=== PATIENT | female | born 1945 | race Two or more races ===

== ENCOUNTER 2024-02-22 10:05 | Day surgery (SDC) | payer MEDICARE, BC, SELFPAY ==
--- NOTE | 2024-02-16 13:35 | EKG_ITS ---
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
[2024-02-16 15:01] LABS: Collection Type, Urine Clean Catch
[2024-02-16 15:15] LABS: Basophils # (Auto) 0.1 Thou/mm3 (0.0-0.2); Basophils % (Auto) 1 % (0-2.5); Eosinophils # (Auto) 0.2 Thou/mm3 (0.0-0.5); Eosinophils % (Auto) 3 % (0-10); Hematocrit 41.1 % (36.0-46.0); Hemoglobin 13.5 g/dL (12.0-16.0); Immature Granulocytes % (Auto) 1 % (0-0); Immature Granulocytes Auto 0.03 Thou/mm3 (0.00-0.00); Lymphocytes # (Auto) 2.5 Thou/mm3 (1.0-4.8); Lymphocytes % (Auto) 39 % (10-50); Mean Corpuscular HGB Conc 32.8 g/dl (31.0-37.0); Mean Corpuscular Hemoglobin 29.9 pg (25.0-35.0); Mean Corpuscular Volume 91 fL (80-100); Monocytes # (Auto) 0.5 Thou/mm3 (0.0-0.8); Monocytes % (Auto) 8 % (0-12); Neutrophils # (Auto) 3.1 Thou/mm3 (1.8-7.7); Neutrophils % (Auto) 49 % (37-80); Nucleated Red Blood Cell % 0 /100 WBC (0); Platelet Count 291 Thou/mm3 (140-440); RDW Standard Deviation 42.3 fL (36.4-46.3); Red Blood Count 4.52 Miln/mm3 (4.00-5.20); White Blood Count 6.4 Thou/mm3 (3.6-11.0)
[2024-02-16 15:18] LABS: Bilirubin,Urine Negative (Negative); Blood,Urine 1+ (Negative); Clarity,Urine Clear (Clear/Hazy); Color,Urine Lt-Yellow (Lt Yel-Yel); Glucose, Urine Negative (Negative); Ketones,Urine Negative (Negative); Leukocyte Esterase,Urine Positive (Negative); Nitrite,Urine Negative (Negative); PH,Urine 6.5 (5.0-7.0); Protein,Urine Negative (Neg - Trace); RBC,Urine 9 /hpf (0-3); Specific Gravity,Urine 1.017 (1.001-1.035); Squamous Epithelial Cell,Urine 1 /hpf (0-5); Urobilinogen,Urine Negative mg/dL (0.0-1.0); WBC,Urine 6 /hpf (0-5)
[2024-02-16 15:22] LABS: Partial Thromboplastin Time 27.9 Seconds (22.0-36.0); Prothrombin Time 10.6 Seconds (9.0-12.2)
[2024-02-16 15:42] LABS: Alanine Aminotransferase 15 U/L (10-49); Albumin, Serum 4.7 gm/dL (3.4-4.8); Alkaline Phosphatase 133 U/L (46-116); Anion Gap 6 (7-16); Aspartate Amino Transferase 21 U/L (0-34); BUN/Creatinine Ratio 17 Ratio (12-20); Bilirubin,Total 0.4 mg/dL (0.3-1.2); Blood Urea Nitrogen 12 mg/dL (9-23); Calcium 9.3 mg/dL (8.3-10.6); Calcium (Corrected) 9.3 mg/dL (8.5-10.1); Carbon Dioxide 26.1 mMol/L (20.0-31.0); Chloride 106 mMol/L (98-107); Creatinine (Component) 0.7 mg/dL (0.6-1.3); Globulin 2.4 gm/dL (2.3-3.5); Glucose 95 mg/dL (74-106); Osmolality,Calculated 275 (275-295); Potassium 4.3 mMol/L (3.4-5.1); Sodium 138 mMol/L (136-145); Total Protein 7.1 gm/dL (5.7-8.2); eGFR > 60 See Note
[2024-02-21 14:04] VITALS: BMI 27.9
--- NOTE | 2024-02-21 22:04 | PD.SURHP ---
HPI Date of Admission 02/22/2024 Chief Complaint Chief Complaint: Upper abdominal pain. HPI This 78 years old female gets postprandial upper abdominal pain she also has crampy pain in abdomen. She is brought here for Upper GI endoscopy possible biopsy. Past Medical History Past Medical History NEUROLOGIC: Negative Neurological Disorders or Seizures CARDIAC: Positive Cardiac Disorders and Hypertension; Negative Congestive Heart Failure RESPIRATORY: Negative Respiratory Disorders or Chronic Obstructive Pulmonary Disease (COPD) GASTROINTESTINAL: Negative Gastrointestinal Disorders or Gastroesophageal Reflux Disease GENITOURINARY: Negative Genitourinary Disorders or Renal Disease REPRODUCTIVE: Positive Previous Pregnancies; Negative Breast Cancer MUSCULOSKELETAL: Positive Musculoskeletal Disorders, Arthritis and Carpal Tunnel Syndrome (elizabeth) ENT: Positive History of ENT Problems and Cataracts; Negative Glaucoma ENDOCRINE: Negative Endocrine Disorders, Diabetes Mellitus Type 1 or Diabetes Mellitus Type 2 HEMATOLOGIC: Negative Blood Disorders OTHER HISTORY: Positive Hospitalization (surgery), Chicken Pox, Measles and Mumps; Negative Autoimmune Disease, Shingles, Falls, Blood Transfusions, Anesthesia Reactions, Clostridium Difficile, Cancer or Breast Cancer Family History FAMILY HISTORY: Negative Family Psychiatric Problems, Family Respiratory Disorders, Family Cardiac Disorders, Family Gastrointestinal Problems, Family Cancer, Family Surgery or Family Anesthesia Reaction Surgical History SURGICAL: Positive Knee Sx, Arthroscopy and Hysterectomy Social History SMOKING STATUS: Never smoker Travel History EBOLA RISK: No Meds Home Medications and Allergies Home Medications ?Medication ?Instructions ?Recorded ?Confirmed ?Type lisinopril 2.5 mg tablet 2.5 mg PO QDAY 10/25/17 02/21/24 History ibuprofen 600 mg tablet 600 mg PO Q8H PRN Pain 02/21/24 02/21/24 History Allergies Allergy/AdvReac Type Severity Reaction Status Date / Time meperidine [From Demerol] Allergy Mild Dizziness Verified 02/21/24 14:03 codeine Allergy Unknown Nausea Verified 02/21/24 14:03 hydrocodone Allergy Unknown Nausea Verified 02/21/24 14:03 soap Allergy itching Verified 02/21/24 14:03 Exam Constitutional Constitutional: no acute distress Routine HEENT Exam Head: Present normocephalic Eye: Present EOMI and PERRL ENT: Present mucous membranes moist Routine Neck Exam Neck: Present supple and trachea midline Routine Chest/Breast/Axilla Exam Chest wall: Absent tenderness or mass Routine Respiratory Exam Respiratory: Present chest non-tender, lungs clear, normal breath sounds and no resp distress; Absent respiratory distress Routine Cardiovascular Exam Cardiovascular: Present RRR Routine Abdominal Exam Abdominal: Present soft and normoactive bowel sounds Routine Extremities Exam Extremities: Present full ROM Routine Skin Exam Skin: Present intact, dry and warm Routine Neurological Exam Neurological: Present alert, oriented X3 and CN II-XII intact Routine Psychiatric Exam Psychiatric: Present normal affect and normal thought process Assessment & Plan Problem List (1) Upper abdominal pain: Status: Acute Plan Upper GI endoscopy possible biopsy. Quality Measures Quality Measures none Advance care planning discussed with:: patient
[2024-02-22] VITALS (10 sets, daily range): BP systolic 115–183; BP diastolic 64–93; PULSE 72–102; RESP 13–21; TEMP 36.3–36.5; O2SAT 95–99; BMI 27.9
--- NOTE | 2024-02-22 13:47 | SUR.PHASEII ---
1347: Pt. AAOx4, vitals stable, breathing unlabored, no complaint of pain or nausea, no dressing in place, no active bleed noted, report received from Kirsty GREER.
--- NOTE | 2024-02-22 14:20 | SUR.PHASEII ---
1420: Pt. AAOx4, vitals stable, breathing unlabored, no complaint of pain or nausea, no dressing in place, no active bleed noted, pt. tolerated sips of water well, pt. ambulated to wheelchair with steady gait and no assist, no complications. Gave discharge instructions to the pt. and her ride, both verbalized understanding and had no further questions. Pt. left with all personal belongings.
== END 2024-02-22 14:20 | disposition home or self-care (01) ==
PROVIDERS: PCP Family Medicine; Referring Provider Specialist; Visit Provider Specialist
PROC: (CPT 43239; principal; 2024-02-22 11:15)
DX: K21.00 Gastro-esophageal reflux disease with esophagitis, without bleeding (principal); K44.9 Diaphragmatic hernia without obstruction or gangrene; I10 Essential (primary) hypertension; M19.90 Unspecified osteoarthritis, unspecified site; Z90.710 Acquired absence of both cervix and uterus; Z01.810 Encounter for preprocedural cardiovascular examination
CPT/HCPCS: 43235; 36415; 80053; 81001; 85025; 85610; 85730; 93005; J1200; J2250; J3010; A9270

== ENCOUNTER → 2024-03-20 | Outpatient (CLI) | payer MEDICARE, BC, SELFPAY ==
[2024-03-20 10:22] LABS: Collection Type, Urine Clean Catch
[2024-03-20 14:03] LABS: Bilirubin,Urine Negative (Negative); Blood,Urine 1+ (Negative); Clarity,Urine Clear (Clear/Hazy); Color,Urine Lt-Yellow (Lt Yel-Yel); Glucose, Urine Negative (Negative); Ketones,Urine Negative (Negative); Leukocyte Esterase,Urine Positive (Negative); Nitrite,Urine Negative (Negative); PH,Urine 5.5 (5.0-7.0); Protein,Urine Negative (Neg - Trace); RBC,Urine 6 /hpf (0-3); Squamous Epithelial Cell,Urine 1 /hpf (0-5); Urobilinogen,Urine Negative mg/dL (0.0-1.0); WBC,Urine 5 /hpf (0-5)
== END | disposition home or self-care (01) ==
LOC: SLDO 10:13
PROVIDERS: Referring Provider Family Medicine; Visit Provider Family Medicine
DX: N39.0 Urinary tract infection, site not specified (principal)
CPT/HCPCS: 81001; 87086

== ENCOUNTER → 2024-04-11 | Outpatient (CLI) | payer MEDICARE, BC, SELFPAY ==
--- NOTE | 2024-04-11 10:00 | XR_ITS ---
Examination: MRI lumbar spine without contrast Date and time of exam: April 11, 2024 1159 hours INDICATIONS: Low back pain beginning 4 months ago Technique: Multiple MRI axial and sagittal sections lumbar spine. Sagittal T2-weighted images, TR 3500, TE 118 T1 weighted transverse sections, TR 688 T8.5, T2-weighted sagittal sections T1 weighted sagittal sections TR 621, TE 30 T2 axial sections, TR 4, 190, TE 84. Findings: Minimal anterolisthesis L4 on L5, 2 mm Chronic compression L3, mild Adequate marrow signal lumbar vertebral bodies Mild lumbar spondylosis No spondylolisthesis Diffuse lumbar disc desiccation L5-S1 2 mm central lumbar disc bulge L4-L5 4 mm central lumbar disc bulge L3-L4 no disc protrusion L2-L3 no disc protrusion L1-L2 no disc protrusion IMPRESSION: L5-S1 2 mm central lumbar disc bulge L4-L5 4 mm central lumbar disc bulge
== END | disposition home or self-care (01) ==
PROVIDERS: Referring Provider Family Medicine; Visit Provider Family Medicine
DX: M51.369 Other intervertebral disc degeneration, lumbar region without mention of lumbar back pain or lower extremity pain (principal); M51.379 Other intervertebral disc degeneration, lumbosacral region without mention of lumbar back pain or lower extremity pain
CPT/HCPCS: 72148

== ENCOUNTER → 2024-04-21 | Outpatient (CLI) | payer MEDICARE, BC, SELFPAY ==
[2024-04-21 11:15] LABS: Misc Send Out* See Sep Rpt
[2024-04-21 12:10] LABS: Folate > 24.00 ng/mL (>5.38); Vitamin B12 658 pg/mL (211-911)
[2024-04-21 12:23] LABS: Iron 77 mcg/dL (50-170)
[2024-04-21 13:45] LABS: Total Iron Binding Capacity 337 mcg/dL (250-425)
[2024-04-27 06:59] LABS: Vitamin B6, Plasma* 11.1 ng/mL (2.1-21.7)
[2024-04-28 06:40] LABS: Zinc, Plasma* 64 mcg/dL (60-130)
== END | disposition home or self-care (01) ==
LOC: COPL 10:41
PROVIDERS: PCP Family Medicine; Referring Provider Nurse Practitioner Family; Visit Provider Nurse Practitioner Family
DX: K14.0 Glossitis (principal)
CPT/HCPCS: 36415; 82607; 82746; 83540; 83550; 84207; 84252; 84446; 84591; 84630

== ENCOUNTER → 2024-04-29 | Outpatient (CLI) | payer MEDICARE, BC, SELFPAY ==
--- NOTE | 2024-04-29 12:00 | XR_ITS ---
Examination: MRI left hip without intravenous contrast Date and time of exam: April 29 2024 1204 hrs. Indications: Lower back pain radiating to the left hip 4 months Technique: Multiple MRI images of the left hip have been obtained T1 weighted coronal sections, TR 500, TE 12 Proton density coronal fat saturated images, TR 3000, TE 71 T2-weighted coronal images, 5850, TE 104 T1-weighted axial images, TR 521, TE 12 T2-weighted axial fat suppressed images, TR 5730, TE 103. Findings: Mild right mild to moderate left hip effusions Fluid in the greater trochanteric bursa left hip No left hip occult fracture bone contusion or marrow edema No avascular necrosis Adequate marrow signal right hip bones of the pelvis Small [id number] high-resolution images of the left hip demonstrate small left hip superior labral tears, coronal image 16 Impression: Asymmetric more prominent left hip effusion, consider fluoroscopically guided left hip aspiration to exclude septic arthritis Greater trochanteric bursitis left hip Small left hip superior labral tear
--- NOTE | 2024-04-29 12:00 | XR_ITS ---
Examination: MRI right hip without intravenous contrast. Date and time of exam: May 09, 2024 1148 hrs. Indications: Back pain radiating to the hips 4 months Technique: Multiple MRI images of the right hip have been obtained T1 weighted coronal sections, TR 500, TE 12 Proton density coronal fat saturated images, TR 3000, TE 71 T2-weighted coronal images, 5850, TE 104 T1-weighted axial images, TR 521, TE 12 T2-weighted axial fat suppressed images, TR 5730, TE 103. Findings: No right hip marrow edema or occult fracture bone contusion or avascular necrosis Small right hip effusion Small [id number] high-resolution images do demonstrate right hip superior labral tears Impression: Small right hip effusion, clinical correlation advised No occult fracture bone contusion marrow edema or avascular necrosis right hip Right hip superior labral tears
== END | disposition home or self-care (01) ==
LOC: SMRI 10:15
PROVIDERS: Referring Provider Family Medicine; Visit Provider Family Medicine
DX: M25.452 Effusion, left hip (principal); M25.451 Effusion, right hip; M70.62 Trochanteric bursitis, left hip; S73.101A Unspecified sprain of right hip, initial encounter; S43.432A Superior glenoid labrum lesion of left shoulder, initial encounter; X58.XXXA Exposure to other specified factors, initial encounter
CPT/HCPCS: 73721

== ENCOUNTER → 2024-08-15 | Outpatient (CLI) | payer MEDICARE, BC, SELFPAY ==
[2024-08-15 13:42] LABS: Basophils % (Auto) 1 % (0-2.5); Eosinophils # (Auto) 0.2 Thou/mm3 (0.0-0.5); Eosinophils % (Auto) 4 % (0-10); Hematocrit 38.3 % (36.0-46.0); Hemoglobin 12.5 g/dL (12.0-16.0); Immature Granulocytes % (Auto) 0 % (0-0); Immature Granulocytes Auto 0.03 Thou/mm3 (0.00-0.00); Lymphocytes # (Auto) 2.3 Thou/mm3 (1.0-4.8); Lymphocytes % (Auto) 33 % (10-50); Mean Corpuscular HGB Conc 32.6 g/dl (31.0-37.0); Mean Corpuscular Hemoglobin 30.3 pg (25.0-35.0); Mean Corpuscular Volume 93 fL (80-100); Monocytes # (Auto) 0.5 Thou/mm3 (0.0-0.8); Monocytes % (Auto) 7 % (0-12); Neutrophils # (Auto) 3.7 Thou/mm3 (1.8-7.7); Neutrophils % (Auto) 55 % (37-80); Nucleated Red Blood Cell % 0 /100 WBC (0); Platelet Count 240 Thou/mm3 (140-440); RDW Standard Deviation 43.8 fL (36.4-46.3); Red Blood Count 4.12 Miln/mm3 (4.00-5.20); White Blood Count 6.8 Thou/mm3 (3.6-11.0)
[2024-08-15 15:24] LABS: Albumin, Serum 4.5 gm/dL (3.4-4.8); Anion Gap 10 (7-16); BUN/Creatinine Ratio 23 Ratio (12-20); Blood Urea Nitrogen 16 mg/dL (9-23); Calcium 8.7 mg/dL (8.3-10.6); Calcium (Corrected) 8.7 mg/dL (8.5-10.1); Carbon Dioxide 25.7 mMol/L (20.0-31.0); Chloride 109 mMol/L (98-107); Creatinine (Component) 0.7 mg/dL (0.6-1.3); Glucose 96 mg/dL (74-106); Osmolality,Calculated 289 (275-295); Phosphorous 3.3 mg/dL (2.4-5.1); Sodium 145 mMol/L (136-145); eGFR > 60 See Note
== END | disposition home or self-care (01) ==
LOC: COPL 12:34
PROVIDERS: PCP Family Medicine; Referring Provider Family Medicine; Visit Provider Family Medicine
DX: D69.6 Thrombocytopenia, unspecified (principal)
CPT/HCPCS: 36415; 80069; 85025

== ENCOUNTER 2024-08-25 16:14 | Emergency (ER) | payer MEDICARE, BC, SELFPAY ==
--- NOTE | 2024-08-25 16:36 | PC.NURSE ---
PT CAME UP TO THIS RN AND SAID SHE DOES NOT WANT TO WAIT ANY LONGER, AND ASKED IF IT IS BUSY AT NIGHT? AND SHE IS GOING TO GO HOME AND COME BACK IF SHE NEEDS TO. THIS RN EXPLAINED, THE PROVIDER NEEDS TO ASSESS HER, SHE SAID NO SHE IS NOT WAITING.
--- NOTE | 2024-08-25 16:54 | PC.NURSE ---
called for pt from lobby/outside, no [email or web address]@ [phone]
--- NOTE | 2024-08-25 17:27 | PC.NURSE ---
CALLED FOR PT FROM LOBBY/OUTSIDE, NO [email or web address]@[phone]
== END 2024-08-25 17:48 | disposition left against medical advice (07) ==
PROVIDERS: Emergency Provider Emergency Medicine
DX: Z53.21 Procedure and treatment not carried out due to patient leaving prior to being seen by health care provider (principal)

== ENCOUNTER 2025-01-01 19:14 | Emergency (ER) | payer MEDICARE, BC, SELFPAY ==
[2025-01-01 19:16] VITALS: BMI 26.5
== END 2025-01-01 20:15 | disposition left against medical advice (07) ==
LOC: SERX 20:15
PROVIDERS: Emergency Provider Emergency Medicine
DX: Z53.21 Procedure and treatment not carried out due to patient leaving prior to being seen by health care provider (principal)
CPT/HCPCS: 99281

== ENCOUNTER 2025-01-08 14:48 | Inpatient (IN) | payer MEDICARE, BC, SELFPAY ==
[2025-01-08] VITALS (14 sets, daily range): BP systolic 114–173; BP diastolic 78–117; PULSE 104–118; RESP 16–98; TEMP 36.1–37.6; O2SAT 92–97; BMI 25.0; BMI 24.6
--- NOTE | 2025-01-08 14:49 | XR_ITS ---
EXAMINATION: AP chest single view TECHNIQUE: Portable upright AP chest single view Date and time: January 08, 2025, 1554 hours INDICATIONS: Stroke alert today FINDINGS: Normal heart size. No aspiration pneumonia. Mild ectasia thoracic aorta. Prominent osteopenia. IMPRESSION: Negative for aspiration pneumonia.
--- NOTE | 2025-01-08 14:49 | XR_ITS ---
Examination: CTA carotids with intravenous contrast CTA brain, head with intravenous contrast. 2-D sagittal, coronal reconstructions. 3-D reconstructions. Exam date and time: January 08, 2025, 1500 hours INDICATIONS: Stroke alert today, onside focal neurologic deficit including slurred speech CTDI: vol (mGy) 15.2 DLP: (mGycm) 368 Technique: Multiple CTA axial brain, head carotid images post intravenous contrast injection 75 cc, Isovue-370. 2-D sagittal, coronal reconstructions. 3-D reconstructions, 3-D post processing including vascular maximum intensity projection images. Low dose protocols were performed. One or more of the following dose reduction techniques were used; automated exposure control, adjustment of the mA and/or KV according to patient size, use of iterative reconstruction technique. Findings: 30 to 50% stenosis right carotid bifurcation origin right internal carotid artery 70% stenosis left carotid bifurcation origin left internal carotid artery Dominant right vertebral artery in the neck with no critical stenoses Intracranial vertebral arteries basilar artery posterior cerebral branches do fill Moderate calcification juxtasellar portions of both internal carotid arteries No large vessel occlusions involving M1 segments middle cerebral arteries middle cerebral artery trifurcation vessels or anterior cerebral arteries IMPRESSION: 30 to 50% stenosis right carotid bifurcation origin right internal carotid artery 70% stenosis left carotid bifurcation origin left internal carotid artery No cerebral large vessel arterial occlusions or thrombus
--- NOTE | 2025-01-08 14:49 | XR_ITS ---
Examination: CT brain head without contrast. 2-D sagittal coronal reconstructions Date and time of exam: January 08, 2025, 1425 hours INDICATIONS: Stroke alert, onset slurred speech today CTDI: vol (mGy): 93.5 DLP: (mGycm): 1790 Technique: Multiple CT axial sections of the brain have been obtained, 5 mm slice thickness. Contrast has not been administered. 2-D sagittal, coronal reconstructions have been obtained Low dose protocols were performed. One or more of the following dose reduction techniques were used; automated exposure control, adjustment of the mA and/or KV according to patient size, use of iterative reconstruction technique. Findings: Ventricles are not enlarged No mass effect upon the ventricular system No acute hemorrhage either intra or extra-axial Fourth ventricle midline Cranial vault is intact Old fracture medial wall left orbit IMPRESSION: No acute hemorrhage mass effect or midline shift
--- NOTE | 2025-01-08 14:49 | EKG_ITS ---
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
[2025-01-08 15:09] LABS: Basophils # (Auto) 0.0 Thou/mm3 (0.0-0.2); Basophils % (Auto) 1 % (0-2.5); Eosinophils # (Auto) 0.1 Thou/mm3 (0.0-0.5); Eosinophils % (Auto) 2 % (0-10); Hematocrit 42.4 % (36.0-46.0); Hemoglobin 13.8 g/dL (12.0-16.0); Immature Granulocytes Auto 0.03 Thou/mm3 (0.00-0.00); Lymphocytes # (Auto) 1.4 Thou/mm3 (1.0-4.8); Lymphocytes % (Auto) 27 % (10-50); Mean Corpuscular HGB Conc 32.5 g/dl (31.0-37.0); Mean Corpuscular Hemoglobin 28.2 pg (25.0-35.0); Mean Corpuscular Volume 87 fL (80-100); Monocytes # (Auto) 0.5 Thou/mm3 (0.0-0.8); Monocytes % (Auto) 9 % (0-12); Neutrophils # (Auto) 3.3 Thou/mm3 (1.8-7.7); Neutrophils % (Auto) 62 % (37-80); Nucleated Red Blood Cell # 0.00 Thou/mm3 (0.00-0.00); Nucleated Red Blood Cell % 0 /100 WBC (0); Platelet Count 227 Thou/mm3 (140-440); RDW Standard Deviation 40.6 fL (36.4-46.3); Red Blood Count 4.89 Miln/mm3 (4.00-5.20); White Blood Count 5.3 Thou/mm3 (3.6-11.0)
--- NOTE | 2025-01-08 15:15 | PC.NURSE ---
Patient back from CT in er room 1, Teleneurologists, Dr. Gomes on telemonitor and states patient not a cadidate for Tnkase, son at bedside states patient LKW 0900 this am per sonMars patient having trouble getting her words out when they are asking questions, also patient was unable to walk, patient denies pain, answering questions appropriately, however, slow to respond, patient alert to person and place not time or date, patient confused with some garbles speech, skin is warm dry and pink, new orders recieved.
--- NOTE | 2025-01-08 15:20 | EDNOTE_ITS ---
Altered Mental Status RME/HPI General Chief Complaint: Neuro Symptoms/Deficit Stated Complaint: STROKE Time Seen by Provider: 01/08/25 14:48 Arrival date/time: 01/08/25 14:48 RME / HPI RME / HPI narrative: 79 year old female with history of hypertension presents to the ED BIBA from home for evaluation of altered mental status today. Per medics, family on scene reported she had woken up at 09:00 AM today at her usual state of health. States some time after waking, she began to complain of feeling dizzy and nausea. 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 The patient was not speaking appropriately and appeared confused. Per medics, on scene the patient had a G-FAST of 1 for the aphasia. Otherwise able to follow commands and strength equal in all extremities. In the ED, patient appears to be confused and unable to provide any additional history. Related Data Home Medications ?Medication ?Instructions ?Recorded ?Confirmed lisinopril 2.5 mg tablet 2.5 mg PO QDAY 10/25/1705/15 Allergies Allergy/AdvReac Type Severity Reaction Status Date / Time meperidine (From Demerol) Allergy Mild Dizziness Verified 01/08/25 15:29 codeine Allergy Unknown Nausea Verified 01/08/25 15:29 hydrocodone Allergy Unknown Nausea Verified 01/08/25 15:29 soap Allergy itching Verified 01/08/25 15:29 Review of Systems Review of Systems Systems Reviewed: All systems reviewed, normal except as documented Past Medical History Past Medical History CARDIAC: Positive Cardiac Disorders and Hypertension REPRODUCTIVE: Positive Previous Pregnancies MUSCULOSKELETAL: Positive Musculoskeletal Disorders, Arthritis and Carpal Tunnel Syndrome ENT: Positive Cataracts OTHER HISTORY: Positive Hospitalization, Chicken Pox, Measles and Mumps Surgical History SURGICAL: Positive Joint Replacement (elizabeth. knee), Arthroscopy and Hysterectomy Social History SMOKING STATUS: Never smoker ED Exam Narrative Physical exam: GENERAL APPEARANCE: awake, appears confused, well-developed, well-nourished HEENT: Normocephalic, atraumatic; pupils equal, round, reactive to light; EOMI; mucous membranes pink, moist; oropharynx clear NECK: Supple LUNGS: CTABL; no wheezes, no rales, no rhonchi HEART: Regular rate, regular rhythm; normal S1, S2; no murmurs ABDOMEN: non distended; normal BS; soft, no tenderness, no guarding, no rebound; no masses, no organomegaly, no hernia BACK: no CVA tenderness EXTREMITIES: atraumatic; no edema NEUROLOGIC: awake; appears confused; left facial droop noted SKIN: warm, dry, normal color; no rashes Course Quality Measures Suspected type of Stroke: Non Acute Last known well (date): 01/08/25 Last known well (time): 09:00 Tenecteplase given: Reason(s) TPA not given: Outside the time window not given stroke Orders Category Date Time Status Bedside Blood Glucose NOW Care 01/08/25 14:49 Active Managing Cognitive Engineer NOW Care 01/08/25 14:49 Active Continuous Pulse Oximetry NOW Care 01/08/25 14:49 Completed EKG (ED ONLY) *Do not use* NOW Care 01/08/25 14:49 Completed In and Out Catheter NEEDED Care 01/08/25 14:49 Active Insert IV NOW Care 01/08/25 14:49 Active NIH Stroke Scale now Care 01/08/25 14:49 Active NPO NOW Care 01/08/25 14:49 Active Nurse Swallow Screen x1 Care 01/08/25 14:49 Active Consult to Neurology / Tele-Neurology Routine Cons 01/08/25 14:[address] angio stroke protocol Stat Exams 01/08/25 14:[address] stroke protocol Stat Exams 01/08/25 14:49 Completed EKG (ED Only) Stat Exams 01/08/25 14:49 Draft XR chest 1V portable Stat Exams 01/08/25 14:49 Completed B-Type Natriuretic Peptide Stat Lab 01/08/25 14:51 Completed CBC Stat Lab 01/08/25 14:51 Completed Comprehensive Metabolic Panel Stat Lab 01/08/25 14:51 Completed Drug Screen,Urine Stat Lab 01/08/25 16:20 Completed Magnesium Stat Lab 01/08/25 14:51 Completed Partial Thromboplastin Time Stat Lab 01/08/25 14:51 Completed Prothrombin Time with INR Stat Lab 01/08/25 14:51 Completed Troponin I Stat Lab 01/08/25 14:51 Completed Urinalysis, C/S if Indicated Stat Lab 01/08/25 16:20 Completed Aspirin [Ecotrin] Med 01/08/25 15:24 Discontinued 81 mg PO X1 ONE Sodium Chloride 0.9% 1000 ml [Ns] 1,000 ml Med 01/08/25 15:37 Discontinued IV 999 mls/hr Oxygen Delivery NOW RT 01/08/25 14:49 Active Vital Signs Vital signs: Vital Signs Temperature 99.7 F 01/08/25 15:22 Pulse Rate 114 H 01/08/25 15:22 Respiratory Rate 20 01/08/25 15:22 Blood Pressure 148/90 H 01/08/25 15:22 Pulse Oximetry (%) 92 L 01/08/25 15:22 Oxygen Delivery Method Room Air 01/08/25 15:22 Pulse ox is 92% on room air which is low. Altered Mental Status MDM Narrative MDM Narrative:: Ade Hall am scribing for and in the presence of Dr. Ko. Patient data External records reviewed:: [facility] previous records and EMS form Clinical information provided by:: EMS Social determinants that could affect healthcare access:: none Patient has the following chronic illnesses:: HTN How is presenting disease/condition affected by chronic disease/condition?: exacerbated by Evaluation data The following diagnostics were reviewed and interpreted by me:: lab results, radiology exam(s) and EKG tracing(s) (EKG @ 1526. Sinus tachycardia, rate 114, no STEMI. ) Lab and/or radiology exams considered but not ordered:: None Interpretation Summary: Ordering Physician: Vivienne Ko MD Date of Service: 01/08/25 Procedure(s): CT stroke protocol Accession Number(s): [id number] cc: Alonso Epperson MD; Vivienne Ko MD~ Examination: CT brain head without contrast. 2-D sagittal coronal reconstructions Date and time of exam: January 08, 2025, 1425 hours INDICATIONS: Stroke alert, onset slurred speech today CTDI: vol (mGy): 93.5 DLP: (mGycm): 1790 Technique: Multiple CT axial sections of the brain have been obtained, 5 mm slice thickness. Contrast has not been administered. 2-D sagittal, coronal reconstructions have been obtained Low dose protocols were performed. One or more of the following dose reduction techniques were used; automated exposure control, adjustment of the mA and/or KV according to patient size, use of iterative reconstruction technique. Findings: Ventricles are not enlarged No mass effect upon the ventricular system No acute hemorrhage either intra or extra-axial Fourth ventricle midline Cranial vault is intact Old fracture medial wall left orbit IMPRESSION: No acute hemorrhage mass effect or midline shift Dictated By: Alonso Epperson MD Signed By: <Electronically signed by Alonso Epperson MD in OV> 01/08/25 1458 Ordering Physician: Vivienne Ko MD Date of Service: 01/08/25 Procedure(s): CT angio stroke protocol Accession Number(s): [id number] cc: Alonso Epperson MD; Vivienne Ko MD~ Examination: CTA carotids with intravenous contrast CTA brain, head with intravenous contrast. 2-D sagittal, coronal reconstructions. 3-D reconstructions. Exam date and time: January 08, 2025, 1500 hours INDICATIONS: Stroke alert today, onside focal neurologic deficit including slurred speech CTDI: vol (mGy) 15.2 DLP: (mGycm) 368 Technique: Multiple CTA axial brain, head carotid images post intravenous contrast injection 75 cc, Isovue-370. 2-D sagittal, coronal reconstructions. 3-D reconstructions, 3-D post processing including vascular maximum intensity projection images. Low dose protocols were performed. One or more of the following dose reduction techniques were used; automated exposure control, adjustment of the mA and/or KV according to patient size, use of iterative reconstruction technique. Findings: 30 to 50% stenosis right carotid bifurcation origin right internal carotid artery 70% stenosis left carotid bifurcation origin left internal carotid artery Dominant right vertebral artery in the neck with no critical stenoses Intracranial vertebral arteries basilar artery posterior cerebral branches do fill Moderate calcification juxtasellar portions of both internal carotid arteries No large vessel occlusions involving M1 segments middle cerebral arteries middle cerebral artery trifurcation vessels or anterior cerebral arteries IMPRESSION: 30 to 50% stenosis right carotid bifurcation origin right internal carotid artery 70% stenosis left carotid bifurcation origin left internal carotid artery No cerebral large vessel arterial occlusions or thrombus Dictated By: Alonso Epperson MD Signed By: <Electronically signed by Alonso Epperson MD in OV> 01/08/25 1518 Medications / Prescriptions Medications or Prescriptions considered but not ordered:: None Medication administrations:: Medication Administration History Acetaminophen (Acetaminophen 325 Mg Tablet) 650 mg PO Q6H PRN PRN Reason: Fever >101.5 Stop: 02/07/25 17:08 Aspirin (Aspirin Ec 81 Mg Tabec) 81 mg PO X1 ONE Stop: 01/09/25 09:01 Docusate Sodium (Docusate Sod 100 Mg Capsule) 100 mg PO QDAY DELMY; Protocol Stop: 02/08/25 08:59 Heparin Sodium (Porcine) (Heparin Sod Inj 5000 Unit/Ml Vial) 5,000 unit SC Q12HR DELMY Stop: 01/22/25 20:59 Lactated Ringer's (Lactated Ringers) 1,000 mls @ 75 mls/hr IV .[id number] DELMY Stop: 01/09/25 19:54 Last Admin: 01/08/25 17:38 Dose: 75 mls/hr Documented By: DANIELE Ondansetron HCl (Ondansetron Inj 2 Mg/Ml Inj 2 Ml) 4 mg IVP Q6H PRN; Protocol PRN Reason: NAUSEA OR VOMITING Stop: 02/07/25 17:08 Pantoprazole Sodium (Pantoprazole Inj 40 Mg Vial) 40 mg IVP QDAY DELMY Stop: 02/07/25 17:14 Last Admin: 01/08/25 17:38 Dose: 40 mg Documented By: DANIELE Discontinued Medications Aspirin (Aspirin Ec 81 Mg Tabec) 81 mg PO X1 ONE Stop: 01/08/25 15:25 Last Admin: 01/08/25 15:33 Dose: 81 mg Documented By: DANIELE Sodium Chloride (Ns) 1,000 mls @ 999 mls/hr IV .Q1H1M ONE Stop: 01/08/25 16:37 Last Infusion: 01/08/25 17:07 Dose: Infused Documented By: Admin: 01/08/25 15:51 Dose: 999 mls/hr Documented By: DANIELE Lorazepam (Lorazepam 2 Mg/Ml Vial) 1 mg IVP X1 ONE Stop: 01/08/25 17:28 Last Admin: 01/08/25 17:37 Dose: 1 mg Documented By: DANIELE See above Consultations Consultation(s) initiated? (list below): Yes Consultation #1 (Physician, Specialty, Details): I spoke with teleneurologist Dr. Marcial. Reports patient is not a TNK candidate. Recommends starting on 81mg Aspirin and further admission for work up. Time: 15:24 Consultation #2 (Physician, Specialty, Details): I spoke with hospitalist team A for admission. Diagnosis Most likely diagnosis given after review of the tests above:: Altered mental status Generalized weakness Left facial droop Admission Indicated Admission indicated?: indicated Admission Request Was there a request for admission?: Yes Admission Attestation Admission request attestation: Discussed case with [] from Hospitalist service regarding admission. Discussed patients ED course, exam findings, labs, and radiology results. The Hospitalist [agrees,declines] to accept the patient for admission. Disposition Plan Disposition Plan: Admit Discharge Plan Plan Patient Disposition: Admit Acute Care w/in Hospital Problem List Clinical Impression: Altered mental status, Facial droop, Generalized weakness
[2025-01-08 15:24] LABS: INR 1.0 (0.9-1.3); Partial Thromboplastin Time 28.8 Seconds (22.0-36.0); Prothrombin Time 11.0 Seconds (9.0-12.2)
--- NOTE | 2025-01-08 15:25 | ESCONSULT_ITS ---
Tele Neuro Consultation Consultation Date 01/08/25 Most Recent Vital Signs Last Vital Signs Temp 99.7 F 01/08/25 15:22 Pulse 114 H 01/08/25 15:22 Resp 20 01/08/25 15:22 BP 148/90 H 01/08/25 15:22 Pulse Ox 92 L 01/08/25 15:22 O2 Del Method Room Air 01/08/25 15:22 Laboratory-Coagulation Panel PT 11.0 Seconds (9.0-12.2) 01/08/25 14:51 INR 1.0 (0.9-1.3) 01/08/25 14:51 APTT 28.8 Seconds (22.0-36.0) 01/08/25 14:51 Consultation Narrative [facility] TeleNeurology Consult Services Patient Name:???Ana Santos Date of :???1945 Identification Number:??? Date of Service:???01/08/2025 14:48:33 Diagnosis:?I63.89 - Cerebrovascular accident (CVA) due to other mechanism ([facility]) Impression: ?Mrs. Santos is a 79 year old female with an acute confusional state vs aphasia. Her NIHSS is 6. CT Head negative for bleed. Not a candidate for thrombolysis given LKW >4.5 hours. CTA without evidence of LVO. DDx includes stroke, metabolic encephalopathy, other focal cerebral disease. At this time I would recommend work up for metabolic encephalopathy per primary and MRI brain for the evaluation of ischemia. Our recommendations are outlined below. Recommendations: ? Stroke/Telemetry Floor ? Neuro Checks (Q4) ? Bedside Swallow Eval ? DVT Prophylaxis ? IV Fluids, Normal Saline ? Head of Bed 30 Degrees ? Euglycemia and Avoid Hyperthermia (PRN Acetaminophen) ? Initiate or continue Aspirin 81 MG daily ?MRI Brain. Sign Out: ? Discussed with Emergency Department Provider Advanced Imaging:CTA Head and Neck Completed. LVO:No Patient is not a candidate for MARIKA Metrics: Last Known Well: 01/08/2025 09:00:00 Dispatch Time: 01/08/2025 14:48:33 Arrival Time: 01/08/2025 14:48:00 Initial Response Time: 01/08/2025 14:56:18Symptoms: confusion. Initial patient interaction: 01/08/2025 15:05:45 NIHSS Assessment Completed: 01/08/2025 15:13:37Patient is not a candidate for Thrombolytic. Thrombolytic Medical Decision: 01/08/2025 15:13:39Patient was not deemed candidate for Thrombolytic because of following reasons: LKW outside 4.[address] Head: I personally reviewed all the CT images that were available to me and it showed: no evidence of hemorrhage. Primary Provider Notified of Diagnostic Impression and Management Plan on: 01/08/2025 15:24:19 History of Present Illness:Patient is a 79 year old Female. Patient was brought by private transportation with symptoms of confusion. The patient does not know why she is here. The patient is incoherent. This morning the son spoke to his mother. She did complain of some dizziness and not feeling right. The patient herself is unable to give any history. One week ago the patient left the stove on (unlit). ? Past Medical History: ?Hypertension Medications: No Anticoagulant use? No Antiplatelet use Reviewed EMR for current medications Allergies:? Reviewed Social History: Smoking: No Family History: There is no family history of premature cerebrovascular disease pertinent to this consultation ROS : 14 Points Review of Systems was performed and was negative except mentioned in HPI. Past Surgical History: There Is No Surgical History Contributory To Today?s Visit NIHSS may not be reliable due to: difficult to understand patient responses. Examination: BP(148/90),?Pulse(112), 1A: Level of Consciousness - Alert; keenly responsive?+ 0 1B: Ask Month and Age - Aphasic?+ 2 1C: Blink Eyes & Squeeze Hands - Performs Both Tasks?+ 0 2: Test Horizontal Extraocular Movements - Normal?+ 0 3: Test Visual Keenan - No Visual Loss?+ 0 4: Test Facial Palsy (Use Grimace if Obtunded) - Normal symmetry?+ 0 5A: Test Left Arm Motor Drift - No Drift for 10 Seconds?+ 0 5B: Test Right Arm Motor Drift - No Drift for 10 Seconds?+ 0 6A: Test Left Leg Motor Drift - No Drift for 5 Seconds?+ 0 6B: Test Right Leg Motor Drift - No Drift for 5 Seconds?+ 0 7: Test Limb Ataxia (FNF/Heel-Cohen) - No Ataxia?+ 0 8: Test Sensation - Normal; No sensory loss?+ 0 9: Test Language/Aphasia - Mute/Global Aphasia: No Usable Speech/Auditory Comprehension?+ 3 10: Test Dysarthria - Mild-Moderate Dysarthria: Slurring but can be understood?+ 1 11: Test Extinction/Inattention - No abnormality?+ 0 NIHSS Score:?6 Pre-Morbid Modified [place] Scale: 0 Points = No symptoms at all Spoke with :?Dr. Ko, ED Physician This consult was conducted in real time using interactive audio and video technology. Patient was informed of the technology being used for this visit and agreed to proceed. Patient located in hospital and provider located at home/office setting. Patient is being evaluated for possible acute neurologic impairment and high probability of imminent or life-threatening deterioration. I spent total of 35 minutes providing care to this patient, including time for face to face visit via telemedicine, review of medical records, imaging studies and discussion of findings with providers, the patient and/or family. Dr Ralph Marcial [facility] For Inpatient follow-up with [facility] physician please call [facility] at . As we are not an outpatient service for any post hospital discharge needs please contact the hospital for assistance. If you have any questions for the [facility] physicians or need to reconsult for clinical or diagnostic changes please contact us via [facility] at . Signature :?Ralph Marcial ?
[2025-01-08 15:29] LABS: Alanine Aminotransferase 44 U/L (10-49); Albumin, Serum 4.9 gm/dL (3.4-4.8); Albumin/Globulin Ratio 2.0 (1.2-2.2); Alkaline Phosphatase 107 U/L (46-116); Anion Gap 11 (7-16); Aspartate Amino Transferase 37 U/L (0-34); BUN/Creatinine Ratio 12 Ratio (12-20); Bilirubin,Total 0.4 mg/dL (0.3-1.2); Blood Urea Nitrogen 7 mg/dL (9-23); Calcium 9.2 mg/dL (8.3-10.6); Calcium (Corrected) 9.2 mg/dL (8.5-10.1); Carbon Dioxide 21.6 mMol/L (20.0-31.0); Chloride 104 mMol/L (98-107); Creatinine (Component) 0.6 mg/dL (0.6-1.3); Estimated Creatinine Clearance 60.6 mL/min (>60); Globulin 2.5 gm/dL (2.3-3.5); Glucose 96 mg/dL (74-106); Magnesium 1.9 mg/dL (1.6-2.6); Osmolality,Calculated 271 (275-295); Potassium 3.9 mMol/L (3.4-5.1); Sodium 137 mMol/L (136-145); Total Protein 7.4 gm/dL (5.7-8.2); Troponin I < 0.002 ng/mL (0.0-0.045); eGFR > 60 See Note
[2025-01-08] MEDS: ASPIRIN EC 81 MG TABEC PO (15:33)
[2025-01-08 15:38] LABS: B-Type Natriuretic Peptide 20 pg/mL (0-100)
[2025-01-08] MEDS: SODIUM CHLORIDE 0.9% 1000 ML 1,000 ML 999 ML IV (15:51)
[2025-01-08 16:25] LABS: Collection Type, Urine Catheter
--- NOTE | 2025-01-08 16:27 | PC.NURSE ---
placed nannette-wick on patient. Daughter at bedside, updated patient and daughter on plan of care.
[2025-01-08 16:49] LABS: Bilirubin,Urine Negative (Negative); Blood,Urine 2+ (Negative); Clarity,Urine Clear (Clear/Hazy); Culture Indicated,Urine Not Indicated; Glucose, Urine Negative (Negative); Ketones,Urine 2+ (Negative); Leukocyte Esterase,Urine Negative (Negative); Nitrite,Urine Negative (Negative); PH,Urine 6.5 (5.0-7.0); Protein,Urine Negative (Neg - Trace); RBC,Urine 31 /hpf (0-3); Specific Gravity,Urine 1.024 (1.001-1.035); Squamous Epithelial Cell,Urine < 1 /hpf (0-5); Urobilinogen,Urine Negative mg/dL (0.0-1.0); WBC,Urine 2 /hpf (0-5)
[2025-01-08 16:56] LABS: Amphetamine/Methamp Scrn,U Negative (Negative); Barbiturate Screen,Urine Negative (Negative); Benzodiazepines Screen,Urine Negative (Negative); Benzoylecgonine Screen, Ur Negative (Negative); Fentanyl Screen,Urine Negative (Negative); Opiate Screen,Urine Negative (Negative); THC Screen,Urine Negative (Negative)
[2025-01-08 17:01] LABS: Color,Urine Lt-Yellow (Lt Yel-Yel)
--- NOTE | 2025-01-08 17:25 | PC.NURSE ---
Patient more confused, not following commands, trying to get out of bed and pulling at her ivl's, patient's daughter at bedside to sit with her, Dr. Griffin, made aware, new orders received for ativan.
[2025-01-08] MEDS: LORazepam 2 MG/ML VIAL 1 MG IVP (17:37)
[2025-01-08] MEDS: RINGERS LACTATED 1000 ML 1,000 ML 75 ML IV (17:38)
--- NOTE | 2025-01-08 17:55 | PC.NURSE ---
Dr. Espinal at bedside and is aware of patient's mental status, speaking with son regarding plan of care.
--- NOTE | 2025-01-08 18:35 | ESHP_ITS ---
Documentation for date of: 01/08/25 Patient is a 79-year-old female with past medical history hypertension, hiatal hernia, esophageal stricture status post dilation (10/25/2017), GERD, who presented to the emergency room with chief complain of acute encephalopathy who and was admitted for stroke work up and pending MRI. Patient was seen by tele- neuro and recommended only Aspirin 81 mg. Neurology consulted in house. Sigmoid colitis noted on CT and denied history of Crohns disease or UC. Senior Resident Attestation: I have discussed the case with supervising physician and training intern physician involved in the care of patient. I personally saw and examined patient and discussed the assessment and plan with the entire medical team, including attending. I agree with assessment and plan as documented below. - The patient's plan was discussed with attending Dr. Kylie Amador MD PGY2 Internal Medicine HPI History of Present Illness Chief complaint: altered mental status History of present illness: Patient is a 79 yo female PMHx of HTN presents to emergency department for altered mental status, LNW 9:30AM 01/08. According to the daughter, patient was not feeling well after a birthday democrat last night. Patient was complaining of dizziness at 9:30AM. Her son was saying his mother was talking to him not making sense, sounded confused, and even though her children don't speak [place], Ana was talking [place] to them. Associated symtoms of dizziness the last couple days. No nausea or vomiting. Daughter says her mother was around her son with pneumonia. ED Course: Per medics, family on scene reported she had woken up at 09:00 AM today at her usual state of health. States some time after waking, she began to complain of feeling dizzy and nausea. 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 The patient was not speaking appropriately and appeared confused. Per medics, on scene the patient had a G- FAST of 1 for the aphasia. Otherwise able to follow commands and strength equal in all extremities. In the ED, patient appears to be confused and unable to provide any additional history. T 99.7, HR 114, RR 20, BP 148/90, Pulse Ox 92% on RA. Given 81mg ASA. CTA carotids and brain show 30 to 50% stenosis right carotid bifurcation origin right internal carotid artery. 70% stenosis left carotid bifurcation origin left internal carotid artery. No cerebral large vessel arterial occlusions or thrombus. Per Neuro Dr. Marcial: Mrs. Santos is a 79 year old female with an acute confusional state vs aphasia. Her NIHSS is 6. CT Head negative for bleed. Not a candidate for thrombolysis given LKW >4.5 hours. CTA without evidence of LVO. DDx includes stroke, metabolic encephalopathy, other focal cerebral disease. At this time I would recommend work up for metabolic encephalopathy per primary and MRI brain for the evaluation of ischemia. Admitted to our service for stroke workup vs acute metabolic encephalopathy Review of Systems Review of Systems ROS Unobtainable: unobtainable due to mental status Past Medical History Past Medical History CARDIAC: Positive Hypertension Family History FAMILY HISTORY: Negative Family Neurologic Problems Surgical History SURGICAL: Positive Joint Replacement Travel History EBOLA RISK: No DEVANTE SYMPTOMS: Joint Pain Exam Vital Signs Temp Pulse Resp BP Pulse Ox O2 Del Method 99.7 F 104 H 18 173/92 H 95 Room Air 01/08/25 15:22 01/08/25 17:46 01/08/25 17:46 01/08/25 17:46 01/08/25 17:46 01/08/25 17:46 Narrative Exam General: Altered and confused, speaks gibberish intermittently, and will speak venezuelan to daughter who only speaks icelandic Eye: PERRL, EOMI, normal conjunctiva, no scleral icterus HENT: Normocephalic, atraumatic, normal hearing, pink and moist mucous membranes, no oral lesions in mouth, throat shows no erythema Neck: Supple, non-tender, no JVD, no lymphadenopathy Lungs: Clear to auscultation bilaterally, non-labored respirations, symmetric chest rise, no use of accessory muscles Heart: Normal S1 and S2, no S3 or S4 appreciated. Normal rate and regular rhythm, no murmurs, rubs gallops, or edema. Peripheral pulses intact bilaterally, capillary refill brisk distally Abdomen: Soft, diffuse TTP, non-distended, normal bowel sounds. Guarding. Suprapubic tenderness. Musculoskeletal: Normal range of motion and strength. Skin: Skin is warm, dry, no rashes or lesions. Neurologic: Alert, awake and oriented x3. CN II-XII grossly intact. No focal neuro deficits. No signs of meningeal irritation noted. Psychiatric: Cooperative, appropriate mood and affect Results: Labs 01/13/25 05:39 01/12/25 05:23 Labs: Short CBC 01/08/25 Range/Units 14:51 WBC 5.3 (3.6-11.0) Thou/mm3 Hgb 13.8 (12.0-16.0) g/dL Hct 42.4 (36.0-46.0) % Plt Count 227 (140-440) Thou/mm3 BMP 01/08/25 14:51 Sodium 137 Potassium 3.9 Chloride 104 Carbon Dioxide 21.6 BUN 7 L Creatinine 0.6 Glucose 96 Calcium 9.2 Cardiac Enzymes 01/08/25 Range/Units 14:51 Troponin I < 0.002 (0.0-0.045) ng/mL Liver Function 01/08/25 Range/Units 14:51 Total Bilirubin 0.4 (0.3-1.2) mg/dL AST 37 H (0-34) U/L ALT 44 (10-49) U/L Alkaline Phosphatase 107 (46-116) U/L Albumin 4.9 H (3.4-4.8) gm/dL Urine 01/08/25 Range/Units 16:20 Urine Color Lt-Yellow (Lt Yel-Yel) Urine Clarity Clear (Clear/Hazy) Urine pH 6.5 (5.0-7.0) Ur Specific [place] 1.024 (1.001-1.035) Urine Protein Negative (Neg - Trace) Urine Glucose (UA) Negative (Negative) Quality Measures Quality Measures stroke Suspected type of Stroke: Non Acute Last known well (date): 01/08/25 Last known well (time): 09:00 Tenecteplase given: Reason(s) Tenecteplase not given: Outside the time window not given Rehab services: PT evaluation ordered and Speech Language Pathology eval ordered VTE Prophylaxis: pharmaceutical Antithrombotic by day 2:: not indicated (describe) Statin ordered: not ordered Anticoagulation ordered for A-fib or flutter (current or hx): not indicated Advance care planning discussed with:: sibling Medications Home Medications and Allergies Home Medications ?Medication ?Instructions ?Recorded ?Confirmed ?Type lisinopril 2.5 mg tablet 2.5 mg PO QDAY 10/25/1712/21 History Held on 01/13/25. Instructions: Resume on 01/19/25. Please hold Lisinopril until you follow up with your primary care provider, as you blood pressure has been normal in the hospital. Allergies Allergy/AdvReac Type Severity Reaction Status Date / Time meperidine (From Demerol) Allergy Mild Dizziness Verified 01/08/25 15:29 codeine Allergy Unknown Nausea Verified 01/08/25 15:29 hydrocodone Allergy Unknown Nausea Verified 01/08/25 15:29 soap Allergy itching Verified 01/08/25 15:29 Visit Medications Acetaminophen (Acetaminophen 325 Mg Tablet) 650 mg PO Q6H PRN PRN Reason: Fever >101.5 Stop: 02/07/25 17:08 Aspirin (Aspirin Ec 81 Mg Tabec) 81 mg PO X1 ONE Stop: 01/09/25 09:01 Docusate Sodium (Docusate Sod 100 Mg Capsule) 100 mg PO QDAY [facility]; Protocol Stop: 02/08/25 08:59 Heparin Sodium (Porcine) (Heparin Sod Inj 5000 Unit/Ml Vial) 5,000 unit SC Q12HR DELMY Stop: 01/22/25 20:59 Lactated Ringer's (Lactated Ringers) 1,000 mls @ 75 mls/hr IV .[id number] DELMY Stop: 01/09/25 19:54 Last Admin: 01/08/25 17:38 Dose: 75 mls/hr Ondansetron HCl (Ondansetron Inj 2 Mg/Ml Inj 2 Ml) 4 mg IVP Q6H PRN; Protocol PRN Reason: NAUSEA OR VOMITING Stop: 02/07/25 17:08 Pantoprazole Sodium (Pantoprazole Inj 40 Mg Vial) 40 mg IVP QDAY DELMY Stop: 02/07/25 17:14 Last Admin: 01/08/25 17:38 Dose: 40 mg Discontinued Medications Aspirin (Aspirin Ec 81 Mg Tabec) 81 mg PO X1 ONE Stop: 01/08/25 15:25 Last Admin: 01/08/25 15:33 Dose: 81 mg Sodium Chloride (Ns) 1,000 mls @ 999 mls/hr IV .Q1H1M ONE Stop: 01/08/25 16:37 Last Infusion: 01/08/25 17:07 Dose: Infused Lorazepam (Lorazepam 2 Mg/Ml Vial) 1 mg IVP X1 ONE Stop: 01/08/25 17:28 Last Admin: 01/08/25 17:37 Dose: 1 mg Assessment & Plan Plan Patient is a 79 yo female PMHx of HTN presents to emergency department for altered mental status, LNW 9:30AM 01/08 #Acute metabolic enecphalopathy #Acute Stroke, rule out NIH Score: 7 CTA Brain & Carotids: 30 to 50% stenosis right internal carotid artery. 70% stenosis left internal carotid artery. No cerebral large vessel arterial occlusions or thrombus Given ASA 81mg in ED - mIVF LR 75 mL/hr - consulted neuro appreciate recs - consulted SAMPLING EXPERT - PT eval - nurse bedside swallow eval - NC q4hrs - pending lipid panel, CMP, TSH - permissive HTN < 220 SBP, <105 DBP #Acute Metabolic Encephalopathy DDx: infectious causes vs systemic inflammation vs metabolic causes - CTM clinically - WBC normal so low likelihood of infectious etiology # Abdominal Pain # Sigmoid Colitis WBC 5.3 - mild pain 1-3 APAP 650mg q6, consider adding moderate pain reg - CT Abd/pel completed shows nonspecific colitis involving rectosigmoid colon. - consider ABX Tx if symptoms do not improve - consider GI #HTN - hold lisinopril per stroke protocol Checklist Admit: Med Tele Diet: NPO VTE PPX: Heparin 5000U BID PUD PPX: protonix 40mg IV daily Bowel Reg: Doc-Senna DELMY CODE STATUS: FULL CODE Case was discussed with Attending Dr. Espinal, and Senior Resident Dr. Marjorie Mendoza, DO PGY-1 Attending Provider Attestation/Addendum I have examined the patient, reviewed labs and imaging findings, discussed the case with the resident(s), and reviewed entered orders. I agree with the plan of care as outlined in this note, with these additional summaries/recommendations: After examination of the patient and review of the clinical data, I feel that this patient needs admission to the hospital for further treatment and evaluation. Patient is a 79-year-old female with a medical history of primary hypertension, hiatal hernia, dysphagia, and dyslipidemia presents to [facility] emergency department on 01/08/2025 with chief complaint of altered mental status. Patient diagnosed with acute encephalopathy. Likely metabolic although CVA needs to be ruled out. Order MRI brain. Consult neurology, recommendations appreciated. Hold home antihypertensive. Start ASA and high intensity statin. Continue nonpharm measures to prevent delirium. Frequent reorientation. Patient updated on plan. Please see residents note for additional details and management. Dr. Kylie MD
--- NOTE | 2025-01-08 19:18 | XR_ITS ---
Examination: CT abdomen and pelvis without contrast. Coronal 3-D reconstructions. Sagittal 2-D reconstructions. Date and time of exam: January 08, 20252014 hours INDICATIONS: Onset generalized abdominal pain today CTDI: vol (mGy): 6.55 DLP: (mGycm): 369 Technique: Axial images of the abdomen have been obtained, 3 mm slice thickness Intravenous contrast material has not been administered. Low dose protocols were performed. One or more of the following dose reduction techniques were used; automated exposure control, adjustment of the mA and/or KV according to patient size, use of iterative reconstruction technique. Findings: Diffuse fatty infiltration throughout the liver no focal liver or splenic lesions No definite gallstones No pancreatic or adrenal mass Aorta normal size No hydronephrosis No pericecal inflammatory change Mild inflammatory change about the rectosigmoid colon Urinary bladder intact Severe osteopenia IMPRESSION: No renal or ureteral calculi, no hydronephrosis No CT findings of appendicitis bowel obstruction or diverticulitis Nonspecific colitis involving rectosigmoid colon
--- NOTE | 2025-01-08 21:35 | PC.NURSE ---
PT ADMITTED TO RM 258 FROM ED ON [facility]. PT AWAKE BUT LETHARGIC, CONFUSE,ALERT TO SELF. NO ACUTE DISTRESS. PT DENIES PAIN, ON ROOM AIR. ADMISSION PROCESS DONE. FAMILY AT BEDSIDE,SPOUSE NOHEMY AND DTR SEAN AND INFORMATION OBTAINED FROM THEM MOSTLY DUE TO PT'S CONFUSION. PT MOVES ALL EXTREMITIES WNL. CALL LIGHT WITHIN REACH.ED ALARM ON.
[2025-01-08] MEDS: HEPARIN SOD INJ 5000 UNIT/ML VIAL SC (22:00)
[2025-01-09] VITALS (21 sets, daily range): BP systolic 118–160; BP diastolic 73–122; PULSE 90–123; RESP 11–95; TEMP 36.4–37.1; O2SAT 94–98; BMI 24.6; BMI 13.0
--- NOTE | 2025-01-09 | XR_ITS ---
Examinations: MRI Brain without intravenous contrast. MRA brain without intravenous contrast. MRA carotids without intravenous contrast 3-D vascular reconstructions Date and time of exam: January 09, 2025, 1109 hours INDICATIONS: Stroke alert CT brain scan January 08, 2025, onset focal neurologic deficit Technique: Multiple axial and sagittal images of the brain have been obtained MRA brain carotid images without contrast obtained, including 3-D postprocessing, vascular maximum intensity projection images Findings: Sellaturcica is not enlarged. The optic chiasm and infundibular stalk are not remarkable. Prepontine and interpeduncular cisterns are not enlarged. No localized enlargement of the medulla or isabell. Fourth ventricle and cerebellar tonsils normal in position. Subacute hemorrhage is not seen. Fourth ventricle is midline. Mass in the cerebellopontine angle region is not evident. 7th and 8th nerve complexes exhibits symmetry. Globes are symmetrical with no retro-orbital mass. Increased white matter signal moderate Diffusion-weighted images demonstrate no focus of restricted diffusion Mass-effect upon the ventricular system is not identified. MRA carotid images degraded by patient motion. MRA brain images degraded by patient motion Impression: Negative for acute hemorrhage mass effect or midline shift No acute infarct Moderate chronic microvascular white matter change
[2025-01-09 05:44] LABS: Basophils # (Auto) 0.0 Thou/mm3 (0.0-0.2); Basophils % (Auto) 0 % (0-2.5); Eosinophils # (Auto) 0.0 Thou/mm3 (0.0-0.5); Eosinophils % (Auto) 0 % (0-10); Hematocrit 41.9 % (36.0-46.0); Hemoglobin 13.6 g/dL (12.0-16.0); Immature Granulocytes Auto 0.03 Thou/mm3 (0.00-0.00); Lymphocytes # (Auto) 1.5 Thou/mm3 (1.0-4.8); Lymphocytes % (Auto) 26 % (10-50); Mean Corpuscular HGB Conc 32.5 g/dl (31.0-37.0); Mean Corpuscular Hemoglobin 28.3 pg (25.0-35.0); Mean Corpuscular Volume 87 fL (80-100); Monocytes # (Auto) 0.7 Thou/mm3 (0.0-0.8); Monocytes % (Auto) 12 % (0-12); Neutrophils # (Auto) 3.3 Thou/mm3 (1.8-7.7); Neutrophils % (Auto) 60 % (37-80); Nucleated Red Blood Cell # 0.00 Thou/mm3 (0.00-0.00); Nucleated Red Blood Cell % 0 /100 WBC (0); Platelet Count 238 Thou/mm3 (140-440); RDW Standard Deviation 41.1 fL (36.4-46.3); Red Blood Count 4.81 Miln/mm3 (4.00-5.20); White Blood Count 5.5 Thou/mm3 (3.6-11.0)
[2025-01-09 05:52] LABS: INR 1.1 (0.9-1.3); Partial Thromboplastin Time 29.4 Seconds (22.0-36.0); Prothrombin Time 11.3 Seconds (9.0-12.2)
[2025-01-09 06:22] LABS: Alanine Aminotransferase 33 U/L (10-49); Albumin, Serum 4.4 gm/dL (3.4-4.8); Albumin/Globulin Ratio 1.9 (1.2-2.2); Alkaline Phosphatase 94 U/L (46-116); Anion Gap 16 (7-16); Aspartate Amino Transferase 26 U/L (0-34); BUN/Creatinine Ratio 12 Ratio (12-20); Bilirubin,Total 0.5 mg/dL (0.3-1.2); Blood Urea Nitrogen 6 mg/dL (9-23); Calcium 8.9 mg/dL (8.3-10.6); Calcium (Corrected) 8.9 mg/dL (8.5-10.1); Carbon Dioxide 19.5 mMol/L (20.0-31.0); Cardiac Risk Estimate 3.6 RATIO (3.7-5.6); Chloride 104 mMol/L (98-107); Cholesterol 132 mg/dL (132-200); Creatinine (Component) 0.5 mg/dL (0.6-1.3); Estimated Creatinine Clearance 72.3 mL/min (>60); Globulin 2.3 gm/dL (2.3-3.5); Glucose 91 mg/dL (74-106); HDL Cholesterol 37 mg/dL (40-60); LDL Cholesterol,Calculated 78 mg/dL (0-130); Magnesium 2.0 mg/dL (1.6-2.6); Osmolality,Calculated 275 (275-295); Phosphorous 3.2 mg/dL (2.4-5.1); Potassium 3.5 mMol/L (3.4-5.1); Sodium 139 mMol/L (136-145); Thyroid Stimulating Hormone 2.69 uIU/mL (0.55-4.78); Total Protein 6.7 gm/dL (5.7-8.2); Triglycerides 86 mg/dL (30-150); eGFR > 60 See Note
[2025-01-09] MEDS: RINGERS LACTATED 1000 ML 1,000 ML 75 ML IV (06:42)
--- NOTE | 2025-01-09 07:41 | ESPR_ITS ---
<Statement entered by Joseluis Griffin MD - 01/09/25 16:29> I saw and examined patient personally and supervised PGY 1 resident, Dr. Mendoza with formulating a management plan. I agree with the documentation with the exceptions as listed below. Patient is a 79 yo female PMHx of HTN presents to emergency department for altered mental status, LNW 9:30AM 01/08 Problem list: 1. Altered mental status secondary to metabolic encephalopathy 2. Stroke ruled out 3. TIA 4. Sigmoid colitis seen on CT 5. Primary pretension Patient presented initially with altered mental status cording to her daughter. She was making nonsensical statements and had difficulty with finding. Both CT brain and MRI brain were negative for any acute infarct or hemorrhage. CTA was positive for carotid artery stenosis, 70% on the left and 50% on the right. Etiology AMS possibly TIA or. Today urine culture was obtained and patient was started on ceftriaxone 1 g IV daily empirically. Currently pending neurology recommendations, echo with bubble study, physical therapy and speech therapy. Plan of care discussed with Attending Dr. Jose Angel Griffin MD PGY 2 Disclaimer: This note was dictated by speech recognition. Minor errors in pencils washer may be present due to voice recognition software. Documentation for date of: 01/09/25 Subjective Subjective Interval history: NAEON, patient still AOx0, unable say name, time nor place. and sister in room. Labs were notable for a metabolic acidosis, CBC unremarkable. Appears patient understands Lebanese better, even though family says she can speak fluent Spanish. Patient has trouble responding, appears to understand my responses in Lebanese but struggles to respond. and sister say patient ambulates without issue, speaks fluent Spanish and Lebanese at baseline without cognitive difficulties, and converses normally. ABG/VBG added, patient seems constipated on exam will add a KUB, and due to urine retention will order a urine culture and start ceftriaxone. Patient denies chest pain, does not endorse abdominal pain or SOB. Patient laying in bed, not paying much attention. Exam Vital Signs Temp Pulse Resp BP Pulse Ox O2 Del Method 98.7 F 112 H 13 118/98 H 94 L Room Air 01/09/25 00:00 01/09/25 07:10 01/09/25 07:10 01/09/25 00:00 01/09/25 00:00 01/09/25 00:00 Narrative Exam General: Altered and confused, laying supine in bed Eye: PERRL, EOMI, normal conjunctiva, no scleral icterus HENT: Normocephalic, atraumatic, normal hearing, pink and moist mucous membranes, no oral lesions in mouth, throat shows no erythema Neck: Supple, non-tender, no JVD, no lymphadenopathy Lungs: Clear to auscultation bilaterally, non-labored respirations, symmetric chest rise, no use of accessory muscles Heart: Normal S1 and S2, no S3 or S4 appreciated. Normal rate and regular rhythm, no murmurs, rubs gallops, or edema. Peripheral pulses intact bilaterally, capillary refill brisk distally Abdomen: Soft, non-tender, non-distended, normal bowel sounds. Musculoskeletal: Normal range of motion and strength. Skin: Skin is warm, dry, no rashes or lesions. Neurologic: Alert, awake and oriented x0. CN II-XII grossly intact. No focal neuro deficits. No signs of meningeal irritation noted. NIH: 5 Psychiatric: Cooperative, appropriate mood and affect Objective Labs 01/10/25 05:17 01/10/25 05:17 Labs: Laboratory Results - last 24 hr 01/08/25 01/08/25 01/09/25 14:51 16:20 04:54 WBC 5.3 5.5 RBC 4.89 4.81 Hgb 13.8 13.6 Hct 42.4 41.9 MCV 87 87 MCH 28.2 28.3 MCHC 32.5 32.5 RDW Std Deviation 40.6 41.1 Plt Count 227 238 Neut % (Auto) 62 60 Lymph % (Auto) 27 26 [place] % (Auto) 9 12 Eos % (Auto) 2 0 Baso % (Auto) 1 0 Neut # (Auto) 3.3 3.3 Lymph # (Auto) 1.4 1.5 [place] # (Auto) 0.5 0.7 Eos # (Auto) 0.1 0.0 Baso # (Auto) 0.0 0.0 Immature Gran # (Auto) 0.03 H 0.03 H Absolute Nucleated RBC 0.00 0.00 Immature Gran % 1 H 1 H Nucleated RBC % 0 0 PT 11.0 11.3 INR 1.0 1.1 APTT 28.8 29.4 Sodium 137 139 Potassium 3.9 3.5 Chloride 104 104 Carbon Dioxide 21.6 19.5 L Anion Gap 11 16 BUN 7 L 6 L Creatinine 0.6 0.5 L Estim Creat Clear Calc 60.6 L 72.3 eGFR > 60 > 60 BUN/Creatinine Ratio 12 12 Glucose 96 91 Calculated Osmolality 271 L 275 Calcium 9.2 8.9 Corrected Calcium 9.2 8.9 Phosphorus 3.2 Magnesium 1.9 2.0 Total Bilirubin 0.4 0.5 AST 37 H 26 ALT 44 33 Alkaline Phosphatase 107 94 Troponin I < 0.002 B-Natriuretic Peptide 20 Total Protein 7.4 6.7 Albumin 4.9 H 4.4 D Globulin 2.5 2.3 Albumin/Globulin Ratio 2.0 1.9 Triglycerides 86 Cholesterol 132 LDL Cholesterol, Calc 78 HDL Cholesterol 37 L Cholesterol/HDL Ratio 3.6 L TSH 2.69 Ur Collection Type Catheter Urine Color Lt-Yellow Urine Clarity Clear Urine pH 6.5 Ur Specific Noti 1.024 Urine Protein Negative Urine Glucose (UA) Negative Urine Ketones 2+ A Urine Blood 2+ A Urine Nitrite Negative Urine Bilirubin Negative Urine Urobilinogen (Auto) Negative Ur Leukocyte Esterase Negative Urine RBC 31 H Urine WBC 2 Ur Squamous Epith Cells < 1 Urine Bacteria None Ur Culture Indicated? Not Indicated Urine Opiates Screen Negative Urine Fentanyl Screen Negative Ur Barbiturates Screen Negative U Amphetamin/Meth Scrn Negative U Benzodiazepines Scrn Negative U Cocaine Metab Screen Negative U Marijuana (THC) Screen Negative Quality Measures Quality Measures stroke Suspected type of Stroke: Non Acute Last known well (date): 01/08/25 Last known well (time): 09:00 Tenecteplase given: Reason(s) Tenecteplase not given: Outside the time window not given Rehab services: Speech Language Pathology eval ordered VTE Prophylaxis: pharmaceutical Antithrombotic by day 2:: not indicated (describe) Statin ordered: <75 y/o high intensity dose Anticoagulation ordered for A-fib or flutter (current or hx): not indicated Advance care planning discussed with:: sibling Assessment & Plan Assessment Current Active Medications: Generic Name Dose Route Start Last Admin Trade Name Freq PRN Reason Stop Dose Admin Acetaminophen 650 mg 01/08/25 17:09 Acetaminophen 325 Mg Tablet PO 02/07/25 17:08 Q6H PRN Fever >101.5 Aspirin 81 mg 01/09/25 09:00 Aspirin Ec 81 Mg Tabec PO 10/21/25 09:01 X1 ONE Docusate Sodium 100 mg 01/09/25 09:00 Docusate Sod 100 Mg Capsule PO 02/08/25 08:59 QDAY DELMY Protocol Heparin Sodium (Porcine) 5,000 unit 01/08/25 21:00 01/08/25 22:00 Heparin Sod Inj 5000 Unit/Ml Vial SC 01/22/25 20:59 5,000 unit Q12HR DELMY Administration Lactated Ringer's 1,000 mls @ 75 mls/hr 01/08/25 17:15 01/09/25 06:42 Lactated Ringers IV 01/09/25 19:54 75 mls/hr .[id number] DELMY Administration Ondansetron HCl 4 mg 01/08/25 17:09 Ondansetron Inj 2 Mg/Ml Inj 2 Ml IVP 02/07/25 17:08 Q6H PRN NAUSEA OR VOMITING Protocol Pantoprazole Sodium 40 mg 01/08/25 17:15 01/08/25 17:38 Pantoprazole Inj 40 Mg Vial IVP 02/07/25 17:14 40 mg QDAY DELMY Administration Plan Patient is a 79 yo female PMHx of HTN presents to emergency department for altered mental status, LNW 9:30AM 01/08. Admitted for stroke workup. # Altered mental status secondary to Acute Metabolic Encephalopathy # Stroke ruled-out DDx: viral meningitis vs SLE vs metabolic acidosis secondary to mesenteric ischemia TSH 2.69; B12 462 - CTM clinically - WBC normal so low likelihood of infectious etiology - ordered lactate - Pending thiamine level - Urine Cx pending, UA was normal in ED - U tox pending - Salicylate and acetaminophen levels normal - consulted neuro, appreciate recs # CVA # TIA NIH Score: 5 CTA Brain & Carotids: 30 to 50% stenosis right internal carotid artery. 70% stenosis left internal carotid artery. No cerebral large vessel arterial occlusions or thrombus MRI negative for any acute ischemia or hemorrhage Given ASA 81mg in ED - mIVF LR 75 mL/hr - consulted neuro appreciate recs - consulted INTERPRETATIVE DANCER - PT eval - nurse bedside swallow eval, patient passed - NC q4hrs - start atorvastatin 80mg daily - continue ASA 81 # Abdominal Pain # Sigmoid Colitis on CT WBC 5.3 - mild pain 1-3 APAP 650mg q6, consider adding moderate pain reg - CT Abd/pel completed shows nonspecific colitis involving rectosigmoid colon. - consider ABX Tx if symptoms do not improve - consider GI - started ceftriaxone 1g IV daily (01/09- xx) #Constipation On bowel reg - KUB shows air and stool throughout small and large bowel - given lactulose 20g x1 # Metabolic Acidosis Bicarb on BMP, 19.5 (10.21) - CTM with BMP AM daily - consider other differentials that may cause metabolic acidoses # Primary HTN - hold lisinopril per stroke protocol Checklist Admit: Med Tele Diet: NPO VTE PPX: Heparin 5000U BID PUD PPX: protonix 40mg IV daily Bowel Reg: Doc-Senna DELMY CODE STATUS: FULL CODE Case was discussed with Attending Dr. Walter, and Senior Resident Dr. Gaby Mendoza DO PGY-1 Attending Provider Attestation/Addendum I have discussed and was present for the essential components of the history, physical examination, diagnosis, and treatment plan with the resident. I agree with the patient's care as documented by the resident and amended herein by me. Erick Walter DO. Although this document has been carefully reviewed, there may still be some phonetic and other typographical errors. These errors are purely grammatical due to imperfections in the software program and should not be construed in any way to compromise the substance of the patient's medical care during this visit. Patient seen and evaluated this AM. No acute events overnight, vital signs stable, patient afebrile, pulse 92 at time of bedside visit, patient on room air, SpO2 90%, significant labs included WBC of 3.5, normal sodium potassium, carbon dioxide level 19.9 which is a very slight increase since previous day. U tox negative, abdominal x-ray performed yesterday demonstrating nonobstructive bowel gas pattern, MRI with MRA performed yesterday was negative for any acute intracranial pathology to include stroke only moderate chronic microvascular changes were noted. I did speak with the patient's son and daughter who are at bedside today, they did endorse to me that the patient, approximately 1 week prior to admission, did leave the gas stove on for approximately 3.5 to 4 hours in an 800 square foot home. The patient was apparently sleeping at this time. After the gas was turned off, all windows were opened to clear the house. The patient did experience symptoms to include nausea, vomiting and headache which seem to have waxed and waned up until this admission. This may possibly be delayed neuropsychiatric syndrome from carbon monoxide poisoning. I did reach out to poison control although as expected there is nothing to be done at this time. We did order a repeat carboxyhemoglobin level which was 2.2 which is not necessarily unusual and elderly patients. An EEG was also performed and unremarkable for any seizure activity. An LP was proposed to the family per neurology recommendations however they refused at this point however if the patient declines further, may be open to the procedure. At this point, an echocardiogram is still pending, physical therapy will also see the patient and we will make further determination as far as discharge planning is concerned. If this is truly DNS, there is not much we can do for the patient at this point considering the timeframe, treatment is mostly supportive, we do not have HBO therapy at this hospital however it probably wouldnt not do much good at this point considering the timeframe of the events, and this is considering that this is even DNS, we are open to other differentials however considering the history of this patient, it seems reasonable
[2025-01-09 08:17] LABS: Vitamin B12 462 pg/mL (211-911)
[2025-01-09 08:31] LABS: Acetaminophen < 2.0 mcg/mL (10.0-20.0); Salicylate < 3.0 mg/dL
--- NOTE | 2025-01-09 09:39 | PCS.ST ---
Swallow Evaluation completed. No s/s of aspiration. Recommend soft chopped diet. Speech/Language/Cognitive evaluation initiated.
--- NOTE | 2025-01-09 10:02 | XR_ITS ---
Examination: Abdomen AP single view Technique: AP portable supine abdomen, single view Exam date and time: January 09, 2025, 1036 hours INDICATIONS: Onset abdominal pain today. FINDINGS: Moderate stool throughout the colon. No obstruction No free air Prominent osteopenia IMPRESSION: Nonobstructive bowel gas pattern
--- NOTE | 2025-01-09 10:22 | CHAP ---
Patient was visited by a Spiritual Care Volunteer on 01/09/2025 between 902 and 917 and received comfort, encouragement and/or prayer.
[2025-01-09] MEDS: DOCUSATE SOD 100 MG CAPSULE PO (10:36)
[2025-01-09] MEDS: ASPIRIN EC 81 MG TABEC PO (10:38)
[2025-01-09] MEDS: HEPARIN SOD INJ 5000 UNIT/ML VIAL SC ×2 (10:39→20:27)
--- NOTE | 2025-01-09 13:02 | PC.SS ---
MANAGER INVENTORY conducted bedside contact with the patient conduct initial assessment and to discuss discharge planning.? Patient admitted for stroke.? Patient exhibiting confusion.? At bedside with patient was son, Mars Fernandez .? Information obtained from the patient?s son.? Patient resides at home with spouse, Felton. ?Patient does not utilize any form of DME to assist with ambulation.? Patient does not utilize home oxygen.? Patient described as possessing the ability to complete ADL?s independently.? Patient?s medical surrogate decision maker is son, Mars Fernandez.? Patient?s PCP is Dany Celestin, [facility].? Patient does not participate with dialysis.? Patient utilizes [facility] for medication services.? Plan is for the patient to return home at the time of discharge.? If home health recommended no preferred agency identified.? Family will provide transportation on behalf of the patient.? No further discharge needs identified by the patient.? No further intervention required at this time, manager social work will be available to address any further concerns.? Next of Kin: Mars Jim D/C Plan: Home
[2025-01-09] MEDS: cefTRIAXone/D5w 1gm IV premix 1 GM/50 ML BAG IV (14:08)
[2025-01-09 14:26] LABS: Base Excess, Venous -4 (-3-3); O2 Saturation, Venous 93 % (96-97); PCO2, Venous 37 mmHg (36-56); PO2, Venous 64 mmHg (15-58); pH, Venous 7.36 (7.33-7.66)
[2025-01-09 15:20] LABS: Base Excess -2 (-3-3); HCO3 22 mEq/L (20-26); Inspired Oxygen, FIO2 21 %; O2 Saturation 95 % (91-98); PCO2 35 mmHg (32.0-48.0); PO2 70 mmHg (83-108); pH, Arterial 7.41 (7.35-7.45)
[2025-01-09 15:21] LABS: Allen Test Performed/OK; Puncture Site Left Radial
[2025-01-09] MEDS: LACTULOSE SYRUP 20 GM/30 ML UDC PO (17:32)
--- NOTE | 2025-01-09 20:04 | PD.RESPRO ---
Documentation for date of: 01/09/25 Subjective Subjective Interval history: Patient examined at bedside. BP slightly elevated 160/73 (allowing permissive htn), tachycardia 112. Labs unremarkable. Glucose this morning 91. Patient is AOx0 but is able to recognize her sisters and sons at bedside, stating their names. Appears as if she understands the converstation but unable to express thought process. Son stated that they have noticed a slow decline in memory. Typically has been able to complete ADLs without any difficulties. Up until recently patient has been driving, grocery shopping, gardening. 3 days ago patient was using the stove at home and left gas on. Son returned and noticed from smell. At that time she did not present with any symptoms or confusion. But did endorse some nausea the following day. MRI results were negative for infarcts. Discontinue atorvastatin and lipid pannel is also unremarkable. Plan for EEG as workup for encephalopathy. Exam Vital Signs Temp Pulse Resp BP Pulse Ox O2 Del Method 97.8 F 101 H 16 144/80 H 97 Room Air 01/09/25 16:00 01/09/25 16:00 01/09/25 16:00 01/09/25 16:00 01/09/25 16:00 01/09/25 16:00 Narrative Exam General: Elderly female, No acute distress, confused HEENT: NCAT, No JVD noted. Mucosa moist. Pupils are equal and reactive to light bilaterally Cardiovascular: Normal S1 and S2. Regular rate and rhythm. Respiratory: Lungs are clear to auscultation bilaterally. No wheezing or crackles heard. Abdomen: Soft, nontender, not distended, normal bowel sounds. Skin: Warm to touch, dry, no rashes noted Musculoskeletal: No gross injuries. Able to move all 4 extremities. No pitting edema Neuro: Alert and oriented x0 but recognizes family at bedside. Strength 5/5 in all 4 extremities. Able to follow commands, non sensical speech. Gait not tested. Psych: Normal affect and mood Objective Labs 01/13/25 05:39 01/12/25 05:23 Labs: Laboratory Results - last 24 hr 01/09/25 01/09/25 01/09/25 04:54 13:56 15:08 WBC 5.5 RBC 4.81 Hgb 13.6 Hct 41.9 MCV 87 MCH 28.3 MCHC 32.5 RDW Std Deviation 41.1 Plt Count 238 Neut % (Auto) 60 Lymph % (Auto) 26 [place] % (Auto) 12 Eos % (Auto) 0 Baso % (Auto) 0 Neut # (Auto) 3.3 Lymph # (Auto) 1.5 [place] # (Auto) 0.7 Eos # (Auto) 0.0 Baso # (Auto) 0.0 Immature Gran # (Auto) 0.03 H Absolute Nucleated RBC 0.00 Immature Gran % 1 H Nucleated RBC % 0 PT 11.3 INR 1.1 APTT 29.4 Puncture Site Left Radial ABG pH 7.41 ABG pCO2 35 ABG pO2 70 L ABG HCO3 22 ABG O2 Saturation 95 ABG Base Excess -2 VBG pH 7.36 VBG pCO2 37 VBG pO2 64 H VBG O2 Sat (Fausto) 93 L VBG Base Excess -4 L FiO2 21 Sodium 139 Potassium 3.5 Chloride 104 Carbon Dioxide 19.5 L Anion Gap 16 BUN 6 L Creatinine 0.5 L Estim Creat Clear Calc 72.3 eGFR > 60 BUN/Creatinine Ratio 12 Glucose 91 Calculated Osmolality 275 Calcium 8.9 Corrected Calcium 8.9 Phosphorus 3.2 Magnesium 2.0 Total Bilirubin 0.5 AST 26 ALT 33 Alkaline Phosphatase 94 Total Protein 6.7 Albumin 4.4 D Globulin 2.3 Albumin/Globulin Ratio 1.9 Triglycerides 86 Cholesterol 132 LDL Cholesterol, Calc 78 HDL Cholesterol 37 L Cholesterol/HDL Ratio 3.6 L Vitamin B12 462 TSH 2.69 Salicylates < 3.0 Acetaminophen < 2.0 L ABG Interpretation ABG results: 01/09/25 01/09/25 13:56 15:08 ABG pH 7.41 ABG pCO2 35 ABG pO2 70 L ABG HCO3 22 ABG O2 Saturation 95 ABG Base Excess -2 VBG pH 7.36 VBG pCO2 37 VBG pO2 64 H VBG Base Excess -4 L Quality Measures Quality Measures stroke Suspected type of Stroke: Non Acute Last known well (date): 01/08/25 Last known well (time): 09:00 Tenecteplase given: Reason(s) Tenecteplase not given: Outside the time window not given Rehab services: PT evaluation ordered and Speech Language Pathology eval ordered VTE Prophylaxis: pharmaceutical Antithrombotic by day 2:: not indicated (describe) Statin ordered: >75 y/o moderate or high intensity dose Anticoagulation ordered for A-fib or flutter (current or hx): not indicated Advance care planning discussed with:: child Assessment & Plan Assessment Current Active Medications: Generic Name Dose Route Start Last Admin Trade Name Gigi PRN Reason Stop Dose Admin Acetaminophen 650 mg 01/08/25 17:09 Acetaminophen 325 Mg Tablet PO 02/07/25 17:08 Q6H PRN Fever >101.5 Atorvastatin Calcium 80 mg 01/09/25 21:00 Atorvastatin Calcium 20 Mg Tablet PO 02/08/25 20:59 HS DELMY Docusate Sodium 100 mg 01/09/25 09:00 01/09/25 10:36 Docusate Sod 100 Mg Capsule PO 02/08/25 08:59 100 mg QDAY DELMY Administration Protocol Heparin Sodium (Porcine) 5,000 unit 01/08/25 21:00 01/09/25 10:39 Heparin Sod Inj 5000 Unit/Ml Vial SC 01/22/25 20:59 5,000 unit Q12HR DELMY Administration Ceftriaxone Sodium/Dextrose 1 gm in 50 mls @ 100 mls/hr 01/09/25 11:43 01/09/25 14:08 Rocephin/D5w 1gm Iv Premix IV 01/16/25 11:42 100 mls/hr QDAY DELMY Administration Labetalol HCl 10 mg 01/09/25 08:50 Labetalol Inj 5 Mg/Ml Vial 20 Ml IVP 02/08/25 08:49 Q4HR PRN SBP > 180 Ondansetron HCl 4 mg 01/08/25 17:09 Ondansetron Inj 2 Mg/Ml Inj 2 Ml IVP 02/07/25 17:08 Q6H PRN NAUSEA OR VOMITING Protocol Pantoprazole Sodium 40 mg 01/08/25 17:15 01/09/25 10:36 Pantoprazole Inj 40 Mg Vial IVP 02/07/25 17:14 40 mg QDAY DELMY Administration Plan Patient is a 79 yo female PMHx of HTN presents to emergency department for altered mental status, LNW 9:30AM 01/08. Neurology consulted for stroke workup. #Acute encephalopathy #Dementia, unspecified seizure vs toxic vs metabolic She presented with confusion and aphasia. She has been having slow decline in memory and requiring more help at home. In ED stroke alert called. NIHSS score 6. BP was 148/90, EKG NSR. Was given 81mg aspirin. CT head negative, CTA head/neck showed 30-50% stenosis right carotid and 70% stenosis in left carotid, negative for LVO. TAG 86, cholesterol 132, LDL 78, HDL 78. TSH 2.69; B12 462. UTox negative MRI negative for any ischemia or hemorrhage. -A1c pending - Pending thiamine level - Urine Cx pending, UA was normal in ED -neuro check q4hr -EEG pending -dc atorvastatin # Abdominal Pain # Sigmoid Colitis on CT #Constipation # Metabolic Acidosis # Primary HTN Primary care team to manage above conditions and ongoing care needs. The patient's management plan was discussed with my attending physician Dr. Stearns. Jeannette Neri, PGY-2 Attending Provider Attestation/Addendum I personally have seen and examined the patient at the bedside and I agreed with resident's findings, assessment and plan of care. Presentation of altered mental status with hx of exposure to gas leakage, suspect CO poisoning. FU with EEG. MRI brain: unremarkable.
[2025-01-09] MEDS: ATORVASTATIN CALCIUM 20 MG TABLET 80 MG PO (20:26)
[2025-01-10] VITALS (8 sets, daily range): BP systolic 128–148; BP diastolic 70–84; PULSE 98–110; RESP 16–96; TEMP 36.4–36.8; O2SAT 98–100; BMI 24.6; BMI 24.7
--- NOTE | 2025-01-10 00:45 | RESP.EEG ---
Pt evaluated for EEG exam. Pt is unable to sit still for the exam. EEG on hold.
[2025-01-10 01:02] LABS: Amphetamine/Methamp Scrn,U Negative (Negative); Barbiturate Screen,Urine Negative (Negative); Benzodiazepines Screen,Urine Negative (Negative); Benzoylecgonine Screen, Ur Negative (Negative); Fentanyl Screen,Urine Negative (Negative); Opiate Screen,Urine Negative (Negative); THC Screen,Urine Negative (Negative)
[2025-01-10 06:06] LABS: Basophils # (Auto) 0.0 Thou/mm3 (0.0-0.2); Basophils % (Auto) 0 % (0-2.5); Eosinophils # (Auto) 0.1 Thou/mm3 (0.0-0.5); Eosinophils % (Auto) 2 % (0-10); Hematocrit 43.5 % (36.0-46.0); Hemoglobin 14.5 g/dL (12.0-16.0); Immature Granulocytes Auto 0.02 Thou/mm3 (0.00-0.00); Lymphocytes # (Auto) 1.1 Thou/mm3 (1.0-4.8); Lymphocytes % (Auto) 31 % (10-50); Mean Corpuscular HGB Conc 33.3 g/dl (31.0-37.0); Mean Corpuscular Hemoglobin 28.8 pg (25.0-35.0); Mean Corpuscular Volume 87 fL (80-100); Monocytes # (Auto) 0.6 Thou/mm3 (0.0-0.8); Monocytes % (Auto) 18 % (0-12); Neutrophils # (Auto) 1.7 Thou/mm3 (1.8-7.7); Neutrophils % (Auto) 48 % (37-80); Nucleated Red Blood Cell # 0.00 Thou/mm3 (0.00-0.00); Nucleated Red Blood Cell % 0 /100 WBC (0); Platelet Count 244 Thou/mm3 (140-440); RDW Standard Deviation 40.1 fL (36.4-46.3); Red Blood Count 5.03 Miln/mm3 (4.00-5.20); White Blood Count 3.5 Thou/mm3 (3.6-11.0)
[2025-01-10 06:22] LABS: Alanine Aminotransferase 24 U/L (10-49); Albumin, Serum 4.9 gm/dL (3.4-4.8); Albumin/Globulin Ratio 2.3 (1.2-2.2); Alkaline Phosphatase 99 U/L (46-116); Anion Gap 14 (7-16); Aspartate Amino Transferase 19 U/L (0-34); BUN/Creatinine Ratio 16 Ratio (12-20); Bilirubin,Total 0.4 mg/dL (0.3-1.2); Blood Urea Nitrogen 8 mg/dL (9-23); Calcium 9.1 mg/dL (8.3-10.6); Calcium (Corrected) 9.1 mg/dL (8.5-10.1); Carbon Dioxide 19.9 mMol/L (20.0-31.0); Chloride 104 mMol/L (98-107); Creatinine (Component) 0.5 mg/dL (0.6-1.3); Estimated Creatinine Clearance 72.3 mL/min (>60); Globulin 2.1 gm/dL (2.3-3.5); Glucose 96 mg/dL (74-106); Magnesium 2.1 mg/dL (1.6-2.6); Osmolality,Calculated 273 (275-295); Phosphorous 2.7 mg/dL (2.4-5.1); Potassium 3.6 mMol/L (3.4-5.1); Sodium 138 mMol/L (136-145); Total Protein 7.0 gm/dL (5.7-8.2); eGFR > 60 See Note
[2025-01-10 06:39] LABS: Glucose Estimated Average 111 mg/dL (80-131); Hemoglobin A1C 5.5 % Hgb (4.8-6.0)
[2025-01-10] MEDS: HEPARIN SOD INJ 5000 UNIT/ML VIAL SC ×2 (08:47→20:37)
[2025-01-10] MEDS: DOCUSATE SOD 100 MG CAPSULE PO (08:48)
[2025-01-10] MEDS: cefTRIAXone/D5w 1gm IV premix 1 GM/50 ML BAG IV (08:48)
--- NOTE | 2025-01-10 08:57 | RESP.EEG ---
eeg completed and ready for review
[2025-01-10 10:24] LABS: Salicylate < 3.0 mg/dL
[2025-01-10 10:38] LABS: Carboxyhemoglobin 2.2 % (0.5-1.5); Lactate (Lactic Acid) 1.0 mMol/L (0.4-2.0)
[2025-01-10] MEDS: ACETAMINOPHEN 325 MG TABLET 650 MG PO (13:43)
--- NOTE | 2025-01-10 15:22 | ESPR_ITS ---
<Statement entered by Joseluis Griffin MD - 01/10/25 16:45> I saw and examined patient personally and supervised PGY 1 resident, Dr. Mendoza with formulating a management plan. I agree with the documentation with the exceptions as listed below. Patient is a 79 yo female PMHx of HTN presents to emergency department for altered mental status, LNW 9:30AM 01/08 Problem list: 1. Altered mental status secondary to acute metabolic encephalopathy 2. Possible UTI 3. Primary hypertension 4. Stroke ruled out 5. Metabolic acidosis 6. Carboxyhemoglobinemia Additional history was obtained from patient's family members today. He stated that about a week ago she fell asleep and forgot the stove on with the gas running. After about 3 hours his son realized and cleaned it off. She initially exhibited symptoms of headache, vomiting and weakness. She presented to the ED the following day at which time her symptoms resolved and was discharged home. On this admission she presented acutely altered not being able to speak and displaying signs of aphasia. Both CT and MRI were negative for any acute hemorrhage or infarct. EEG was also negative for any seizure-like activity. Neurology recommended LP to further evaluate for possible multiple sclerosis or other infectious etiologies. This idea was proposed to the family who refused at this point. 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 Plan of care discussed with Attending Dr. Jose Angel Griffin MD PGY 2 Disclaimer: This note was dictated by speech recognition. Minor errors in pinball machine repairer may be present due to voice recognition software. Documentation for date of: 01/10/25 Subjective Subjective Interval history: NAEON. Vitals showed patient was tachy, hypertensive overnight. Labs reviewed showed slight leukopenia 3.5. Slight metabolic acidosis 19.9. A1c 5.5, KUB showed a nonobstructive gas pattern, MRI brain was negative for acute ischemia or hemorrhage, and EEG was negative. Family expressed further history about how the stove was left on by patient in the house for 3-4 hours, the flame was not on but family smelled gas in the house. Family also mentioned patient complaing of headaches and act out the ordinary 3 days ago, however seeing the ED busy and mother returning to baseline; family left the ED without being seen. Team ordered a carboxyhemaglobin level. Ordered blood Cx x2, pending urine Cx, phyical therapy to evaluate, and discussed the possibility of a NG tube if nutritional status continues to decline. Family is encouraging patient drink ensure, Team agrees. Exam Vital Signs Temp Pulse Resp BP Pulse Ox O2 Del Method 98.2 F 105 H 20 145/80 H 98 Room Air 01/10/25 12:00 01/10/25 12:00 01/10/25 12:00 01/10/25 12:00 01/10/25 12:00 01/10/25 12:00 Narrative Exam General: Elderly female, No acute distress, confused HEENT: NCAT, No JVD noted. Mucosa moist. Pupils are equal and reactive to light bilaterally Cardiovascular: Normal S1 and S2. Regular rate and rhythm. Respiratory: Lungs are clear to auscultation bilaterally. No wheezing or crackles heard. Abdomen: Soft, nontender, not distended, normal bowel sounds. Skin: Warm to touch, dry, no rashes noted Musculoskeletal: No gross injuries. Able to move all 4 extremities. No pitting edema Neuro: Alert and oriented x0 but recognizes family at bedside. Strength 5/5 in all 4 extremities. Able to follow commands, non sensical speech. Gait not tested. Psych: Normal affect and mood Objective Labs 01/11/25 04:40 01/11/25 04:40 Labs: Laboratory Results - last 24 hr 01/09/25 01/10/25 01/10/25 20:33 05:17 10:22 WBC 3.5 L RBC 5.03 Hgb 14.5 Hct 43.5 MCV 87 MCH 28.8 MCHC 33.3 RDW Std Deviation 40.1 Plt Count 244 Neut % (Auto) 48 Lymph % (Auto) 31 [place] % (Auto) 18 H Eos % (Auto) 2 Baso % (Auto) 0 Neut # (Auto) 1.7 L Lymph # (Auto) 1.1 [place] # (Auto) 0.6 Eos # (Auto) 0.1 Baso # (Auto) 0.0 Immature Gran # (Auto) 0.02 H Absolute Nucleated RBC 0.00 Immature Gran % 1 H Nucleated RBC % 0 Carboxyhemoglobin 2.2 H Sodium 138 Potassium 3.6 Chloride 104 Carbon Dioxide 19.9 L Anion Gap 14 BUN 8 L Creatinine 0.5 L Estim Creat Clear Calc 72.3 eGFR > 60 BUN/Creatinine Ratio [address] Glu mg/dL 111 Hemoglobin A1c 5.5 Calculated Osmolality 273 L Lactic Acid 1.0 Calcium 9.1 Corrected Calcium 9.1 Phosphorus 2.7 Magnesium 2.1 Total Bilirubin 0.4 AST 19 ALT 24 Alkaline Phosphatase 99 Total Protein 7.0 Albumin 4.9 H D Globulin 2.1 L Albumin/Globulin Ratio 2.3 H Salicylates < 3.0 Urine Opiates Screen Negative Urine Fentanyl Screen Negative Ur Barbiturates Screen Negative U Amphetamin/Meth Scrn Negative U Benzodiazepines Scrn Negative U Cocaine Metab Screen Negative U Marijuana (THC) Screen Negative ABG Interpretation ABG results: 01/09/25 01/09/25 13:56 15:08 ABG pH 7.41 ABG pCO2 35 ABG pO2 70 L ABG HCO3 22 ABG O2 Saturation 95 ABG Base Excess -2 VBG pH 7.36 VBG pCO2 37 VBG pO2 64 H VBG Base Excess -4 L Quality Measures Quality Measures stroke Suspected type of Stroke: Non Acute Last known well (date): 01/08/25 Last known well (time): 09:00 Tenecteplase given: Reason(s) Tenecteplase not given: Outside the time window not given Rehab services: Speech Language Pathology eval ordered VTE Prophylaxis: pharmaceutical Antithrombotic by day 2:: not indicated (describe) Statin ordered: <75 y/o high intensity dose Anticoagulation ordered for A-fib or flutter (current or hx): not indicated Advance care planning discussed with:: child Assessment & Plan Assessment Current Active Medications: Generic Name Dose Route Start Last Admin Trade Name Freq PRN Reason Stop Dose Admin Acetaminophen 650 mg 01/08/25 17:09 01/10/25 13:43 Acetaminophen 325 Mg Tablet PO 02/07/25 17:08 650 mg Q6H PRN Administration Fever >101.5 Atorvastatin Calcium 10 mg 01/10/25 21:00 Atorvastatin Calcium 10 Mg Tablet PO 02/09/25 20:59 HS DELMY Docusate Sodium 100 mg 01/09/25 09:00 01/10/25 08:48 Docusate Sod 100 Mg Capsule PO 02/08/25 08:59 100 mg QDAY DELMY Administration Protocol Heparin Sodium (Porcine) 5,000 unit 01/08/25 21:00 01/10/25 08:47 Heparin Sod Inj 5000 Unit/Ml Vial SC 01/22/25 20:59 5,000 unit Q12HR DELMY Administration Ceftriaxone Sodium/Dextrose 1 gm in 50 mls @ 100 mls/hr 01/09/25 11:43 01/10/25 08:48 Rocephin/D5w 1gm Iv Premix IV 01/16/25 11:42 100 mls/hr QDAY DELMY Administration Labetalol HCl 10 mg 01/09/25 08:50 Labetalol Inj 5 Mg/Ml Vial 20 Ml IVP 02/08/25 08:49 Q4HR PRN SBP > 180 Ondansetron HCl 4 mg 01/08/25 17:09 Ondansetron Inj 2 Mg/Ml Inj 2 Ml IVP 02/07/25 17:08 Q6H PRN NAUSEA OR VOMITING Protocol Pantoprazole Sodium 40 mg 01/08/25 17:15 01/10/25 08:47 Pantoprazole Inj 40 Mg Vial IVP 02/07/25 17:14 40 mg QDAY DELMY Administration Plan Patient is a 79 yo female PMHx of HTN, abdominal pain, and headache with previous knee arthroplasty surgery presents to emergency department for altered mental status, LNW 9:30AM 01/08. Admitted for stroke workup. # Altered mental status secondary to Acute Metabolic Encephalopathy # Stroke ruled-out # CO Poisoning DDx: viral meningitis vs SLE vs metabolic acidosis secondary to mesenteric ischemia TSH 2.69; B12 462, Carboxyhemoglobin 2.2 01/10 - CTM clinically - WBC normal so low likelihood of infectious etiology - ordered lactate - Pending thiamine level - Urine Cx pending, UA was normal in ED - U tox negative - Salicylate and acetaminophen levels negative - Pending BCx x2 - On high-oxygen 10L - contacted poison control - nuero rec LP however family denies procedure # CVA ruled-out # TIA ruled-out NIH Score: 5 CTA Brain & Carotids: 30 to 50% stenosis right internal carotid artery. 70% stenosis left internal carotid artery. No cerebral large vessel arterial occlusions or thrombus MRI negative for any acute ischemia or hemorrhage Given ASA 81mg in ED - mIVF LR 75 mL/hr dc - consulted neuro appreciate recs, agree with stroke r/o - [employer] INST[employer]ER pending - PT eval pending - nurse bedside swallow eval, patient passed - NC q4hrs - neuro rec to dc statin - continue ASA 81 # Abdominal Pain # Sigmoid Colitis on CT WBC 5.3 - mild pain 1-3 APAP 650mg q6, consider adding moderate pain reg - CT Abd/pel completed shows nonspecific colitis involving rectosigmoid colon. - consider ABX Tx if symptoms do not improve - consider GI - started ceftriaxone 1g IV daily (01/09- xx) #Constipation On bowel reg - KUB shows air and stool throughout small and large bowel - given lactulose 20g x1 # Metabolic Acidosis Bicarb on BMP, 19.5 (01.09) - CTM with BMP AM daily - consider other differentials that may cause metabolic acidoses # Primary HTN - hold lisinopril per stroke protocol Checklist Admit: Med Tele Diet: NPO VTE PPX: Heparin 5000U BID PUD PPX: protonix 40mg IV daily Bowel Reg: Doc-Senna DELMY CODE STATUS: FULL CODE Case was discussed with Attending Dr. Walter, and Senior Resident Dr. Gaby Mendoza DO PGY-1 Attending Provider Attestation/Addendum I have discussed and was present for the essential components of the history, physical examination, diagnosis, and treatment plan with the resident. I agree with the patient's care as documented by the resident and amended herein by me. Erick Walter DO. Although this document has been carefully reviewed, there may still be some phonetic and other typographical errors. These errors are purely grammatical due to imperfections in the software program and should not be construed in any way to compromise the substance of the patient's medical care during this visit.
--- NOTE | 2025-01-10 17:08 | PC.SS ---
Update: Patient on room air. Patient to be transitioned to oxygen, 10L. Afebrile. Patient receiving IV antibiotics.
--- NOTE | 2025-01-10 17:40 | PD.RESPRO ---
Documentation for date of: 01/10/25 Subjective Subjective Interval history: Patient examined at bedside. Blood pressure 147/80, tachycardia 110. Patient is exhibiting more alertness today but still not oriented (x0). Able to follow commands. CarboxyHb level 2.2. Primary care team contacted poison control. There is high suspicion of carbon monoxide poisoning as patient had extensive exposure of couple hours at home. EEG results were normal with no findings of seizure activity. At this time family is not interested in pursuing lumbar puncture as they are more concerned about the carbon monoxide poisoning as cause of mentation. Explained to family that treatment at this time would be oxygen therapy. Benefits of oxygen therapy not as effective after initial exposure beyond 6 to 8 hours. They expressed understanding. Continue to monitor clincial status and work with PT. Exam Vital Signs Temp Pulse Resp BP Pulse Ox O2 Del Method 98.2 F 105 H 20 145/80 H 98 Room Air 01/10/25 12:00 01/10/25 12:00 01/10/25 12:00 01/10/25 12:00 01/10/25 12:00 01/10/25 12:00 Narrative Exam General: Elderly female, No acute distress, alert HEENT: NCAT, No JVD noted. Mucosa moist. Pupils are equal and reactive to light bilaterally Cardiovascular: Normal S1 and S2. Regular rate and rhythm. Respiratory: Lungs are clear to auscultation bilaterally. No wheezing or crackles heard. On oxymask Abdomen: Soft, nontender, not distended, normal bowel sounds. Skin: Warm to touch, dry, no rashes noted Musculoskeletal: No gross injuries. Able to move all 4 extremities. No pitting edema Neuro: Alert and oriented x0 but recognizes family at bedside. Strength 5/5 in all 4 extremities. Able to follow commands, non sensical speech. Gait tested. Patient able to take few steps with support. Psych: Normal affect and mood Objective Labs 01/13/25 05:39 01/12/25 05:23 Labs: Laboratory Results - last 24 hr 01/09/25 01/10/25 01/10/25 20:33 05:17 10:22 WBC 3.5 L RBC 5.03 Hgb 14.5 Hct 43.5 MCV 87 MCH 28.8 MCHC 33.3 RDW Std Deviation 40.1 Plt Count 244 Neut % (Auto) 48 Lymph % (Auto) 31 [place] % (Auto) 18 H Eos % (Auto) 2 Baso % (Auto) 0 Neut # (Auto) 1.7 L Lymph # (Auto) 1.1 [place] # (Auto) 0.6 Eos # (Auto) 0.1 Baso # (Auto) 0.0 Immature Gran # (Auto) 0.02 H Absolute Nucleated RBC 0.00 Immature Gran % 1 H Nucleated RBC % 0 Carboxyhemoglobin 2.2 H Sodium 138 Potassium 3.6 Chloride 104 Carbon Dioxide 19.9 L Anion Gap 14 BUN 8 L Creatinine 0.5 L Estim Creat Clear Calc 72.3 eGFR > 60 BUN/Creatinine Ratio [address] Glu mg/dL 111 Hemoglobin A1c 5.5 Calculated Osmolality 273 L Lactic Acid 1.0 Calcium 9.1 Corrected Calcium 9.1 Phosphorus 2.7 Magnesium 2.1 Total Bilirubin 0.4 AST 19 ALT 24 Alkaline Phosphatase 99 Total Protein 7.0 Albumin 4.9 H D Globulin 2.1 L Albumin/Globulin Ratio 2.3 H Salicylates < 3.0 Urine Opiates Screen Negative Urine Fentanyl Screen Negative Ur Barbiturates Screen Negative U Amphetamin/Meth Scrn Negative U Benzodiazepines Scrn Negative U Cocaine Metab Screen Negative U Marijuana (THC) Screen Negative ABG Interpretation ABG results: 01/09/25 01/09/25 13:56 15:08 ABG pH 7.41 ABG pCO2 35 ABG pO2 70 L ABG HCO3 22 ABG O2 Saturation 95 ABG Base Excess -2 VBG pH 7.36 VBG pCO2 37 VBG pO2 64 H VBG Base Excess -4 L Quality Measures Quality Measures stroke Suspected type of Stroke: Non Acute Last known well (date): 01/08/25 Last known well (time): 09:00 Tenecteplase given: Reason(s) Tenecteplase not given: Outside the time window not given Rehab services: PT evaluation ordered and Speech Language Pathology eval ordered VTE Prophylaxis: pharmaceutical Antithrombotic by day 2:: not indicated (describe) Statin ordered: n/a Anticoagulation ordered for A-fib or flutter (current or hx): not indicated Advance care planning discussed with:: patient and child Assessment & Plan Assessment Current Active Medications: Generic Name Dose Route Start Last Admin Trade Name Freq PRN Reason Stop Dose Admin Acetaminophen 650 mg 01/08/25 17:09 01/10/25 13:43 Acetaminophen 325 Mg Tablet PO 02/07/25 17:08 650 mg Q6H PRN Administration Fever >101.5 Atorvastatin Calcium 10 mg 01/10/25 21:00 Atorvastatin Calcium 10 Mg Tablet PO 02/09/25 20:59 HS DELMY Docusate Sodium 100 mg 01/09/25 09:00 01/10/25 08:48 Docusate Sod 100 Mg Capsule PO 02/08/25 08:59 100 mg QDAY DELMY Administration Protocol Heparin Sodium (Porcine) 5,000 unit 01/08/25 21:00 01/10/25 08:47 Heparin Sod Inj 5000 Unit/Ml Vial SC 01/22/25 20:59 5,000 unit Q12HR DELMY Administration Ceftriaxone Sodium/Dextrose 1 gm in 50 mls @ 100 mls/hr 01/09/25 11:43 01/10/25 08:48 Rocephin/D5w 1gm Iv Premix IV 01/16/25 11:42 100 mls/hr QDAY DELMY Administration Labetalol HCl 10 mg 01/09/25 08:50 Labetalol Inj 5 Mg/Ml Vial 20 Ml IVP 02/08/25 08:49 Q4HR PRN SBP > 180 Ondansetron HCl 4 mg 01/08/25 17:09 Ondansetron Inj 2 Mg/Ml Inj 2 Ml IVP 02/07/25 17:08 Q6H PRN NAUSEA OR VOMITING Protocol Pantoprazole Sodium 40 mg 01/08/25 17:15 01/10/25 08:47 Pantoprazole Inj 40 Mg Vial IVP 02/07/25 17:14 40 mg QDAY DELMY Administration Plan Patient is a 79 yo female PMHx of HTN presents to emergency department for altered mental status, LNW 9:30AM 01/08. Neurology consulted for stroke workup. #Acute encephalopathy Likely due to CO poisoning. Concern for delayed neurological sequelae due to exposure. She presented with confusion and aphasia. After the exposure to gas, she experienced headache, nausea, vomiting. There was a lucid interval where she remained asymptomatic. Then presented to ED with confusion. She has been having slow decline in memory and requiring more help at home. In ED stroke alert called. NIHSS score 6. BP was 148/90, EKG NSR. Was given 81mg aspirin. CT head negative, CTA head/neck showed 30-50% stenosis right carotid and 70% stenosis in left carotid, negative for LVO. A1c 5.5, TAG 86, cholesterol 132, LDL 78, HDL 78. TSH 2.69; B12 462. UTox negative MRI negative for any ischemia or hemorrhage. CarboxyHb 2.2--primary care team contacted poison control. EEG was normal, no seizure activity. - Pending thiamine level - Urine Cx pending, UA was normal in ED -neuro check q4hr -dc atorvastatin -continue oxygen therapy -PT # Abdominal Pain # Sigmoid Colitis on CT #Constipation # Metabolic Acidosis # Primary HTN Primary care team to manage above conditions and ongoing care needs. The patient's management plan was discussed with my attending physician Dr. Stearns. Jeannette Neri, PGY-2 Attending Provider Attestation/Addendum I personally have seen and examined the patient at the bedside and I agreed with resident's findings, assessment and plan of care. Acute onset of AMS with aphasia, remote hx of gas leak MRI negative for any ischemia or hemorrhage. CarboxyHb 2.2--primary care team contacted poison control. EEG was normal, no seizure activity. continue oxygen therapy
[2025-01-10] MEDS: ATORVASTATIN CALCIUM 10 MG TABLET PO (20:37)
[2025-01-11] VITALS (56 sets, daily range): BP systolic 121–145; BP diastolic 68–93; PULSE 82–116; RESP 11–142; TEMP 36.6–37.2; O2SAT 93–100; BMI 24.7
[2025-01-11 06:16] LABS: Basophils # (Auto) 0.0 Thou/mm3 (0.0-0.2); Basophils % (Auto) 1 % (0-2.5); Eosinophils # (Auto) 0.0 Thou/mm3 (0.0-0.5); Eosinophils % (Auto) 1 % (0-10); Hematocrit 43.8 % (36.0-46.0); Hemoglobin 14.4 g/dL (12.0-16.0); Immature Granulocytes Auto 0.01 Thou/mm3 (0.00-0.00); Lymphocytes # (Auto) 0.9 Thou/mm3 (1.0-4.8); Lymphocytes % (Auto) 33 % (10-50); Mean Corpuscular HGB Conc 32.9 g/dl (31.0-37.0); Mean Corpuscular Hemoglobin 28.2 pg (25.0-35.0); Mean Corpuscular Volume 86 fL (80-100); Monocytes # (Auto) 0.6 Thou/mm3 (0.0-0.8); Monocytes % (Auto) 21 % (0-12); Neutrophils # (Auto) 1.2 Thou/mm3 (1.8-7.7); Neutrophils % (Auto) 43 % (37-80); Nucleated Red Blood Cell # 0.00 Thou/mm3 (0.00-0.00); Nucleated Red Blood Cell % 0 /100 WBC (0); Platelet Count 243 Thou/mm3 (140-440); RDW Standard Deviation 40.6 fL (36.4-46.3); Red Blood Count 5.11 Miln/mm3 (4.00-5.20); White Blood Count 2.8 Thou/mm3 (3.6-11.0)
[2025-01-11 06:35] LABS: Alanine Aminotransferase 18 U/L (10-49); Albumin, Serum 4.6 gm/dL (3.4-4.8); Albumin/Globulin Ratio 2.4 (1.2-2.2); Alkaline Phosphatase 98 U/L (46-116); Anion Gap 17 (7-16); Aspartate Amino Transferase 17 U/L (0-34); BUN/Creatinine Ratio 36 Ratio (12-20); Bilirubin,Total 0.3 mg/dL (0.3-1.2); Blood Urea Nitrogen 18 mg/dL (9-23); Calcium 9.0 mg/dL (8.3-10.6); Calcium (Corrected) 9.0 mg/dL (8.5-10.1); Carbon Dioxide 21.0 mMol/L (20.0-31.0); Chloride 103 mMol/L (98-107); Creatinine (Component) 0.5 mg/dL (0.6-1.3); Estimated Creatinine Clearance 70.3 mL/min (>60); Globulin 1.9 gm/dL (2.3-3.5); Glucose 107 mg/dL (74-106); Magnesium 2.2 mg/dL (1.6-2.6); Osmolality,Calculated 283 (275-295); Phosphorous 3.3 mg/dL (2.4-5.1); Potassium 3.6 mMol/L (3.4-5.1); Sodium 141 mMol/L (136-145); Total Protein 6.5 gm/dL (5.7-8.2); eGFR > 60 See Note
[2025-01-11] MEDS: cefTRIAXone/D5w 1gm IV premix 1 GM/50 ML BAG IV (08:35)
[2025-01-11] MEDS: HEPARIN SOD INJ 5000 UNIT/ML VIAL SC ×2 (08:36→20:35)
[2025-01-11 10:07] LABS: Beta Hydroxybutyrate 1.6 mmol/L (<0.6)
[2025-01-11] MEDS: SODIUM CHLORIDE 0.9% 250 ML 250 ML 999 ML IV (10:16)
[2025-01-11] MEDS: RINGERS LACTATED 1000 ML 1,000 ML 999 ML IV (10:16)
[2025-01-11 11:12] LABS: Mono Screen Negative (Negative)
[2025-01-11] MEDS: RINGERS LACTATED 1000 ML 1,000 ML 75 ML IV (11:14)
--- NOTE | 2025-01-11 12:04 | XR_ITS ---
Examination: Abdomen AP single view Technique: AP portable supine abdomen, single view Exam date and time: January 11, 20252006 hours INDICATIONS: Constipation beginning 3 days ago. FINDINGS: Moderate air and stool throughout the colon No obstruction Prominent osteopenia IMPRESSION: Moderate air and stool throughout the colon
[2025-01-11] MEDS: LIDOCAINE 5% 1 PATCH TOP (12:16)
--- NOTE | 2025-01-11 14:49 | ESPR_ITS ---
<Statement entered by Joseluis Griffin MD - 01/11/25 21:03> I saw and examined patient personally and supervised PGY 1 resident, Dr. Mendoza with formulating a management plan. I agree with the documentation with the exceptions as listed below. Patient is a 79 yo female PMHx of HTN presents to emergency department for altered mental status, LNW 9:30AM 01/08 Problem list: 1. 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 Possible UTI 3. Primary hypertension 4. Stroke ruled out 5. Metabolic acidosis secondary to starvation ketosis 6. Carboxyhemoglobinemia This a.m. patient was interviewed at bedside and up a ANO x 2 [person and place. She was much more conversant today than yesterday and spoke a lot more Bulgarian than Occitan. She continues to be on supplemental O2 therapy and ceftriaxone 1 g IV daily to empirically treat for possible UTI. Urine culture still pending. Today also ordered cocci serology, influenza and beta-hydroxybutyrate. Once patient's condition continues to improve, anticipate discharge within next 24 to 48 hours. Plan of care discussed with Attending Dr. Jose Angel Griffin MD PGY 2 Disclaimer: This note was dictated by speech recognition. Minor errors in director of education may be present due to voice recognition software. Documentation for date of: 01/11/25 Subjective Subjective Interval history: AOx1 shows improvement in mentation at bedside. Ana talked about last night, a few words, but was lucid. Labs notable for leukopenia 3.5. viral labs were ordered, family refused covid. Explained with continued poor oral intake considering NG Tube, family understands. Encouraged family to adhere to puree/liquid diet for increased PO intake. Exam Vital Signs Temp Pulse Resp BP Pulse Ox O2 Del Method O2 Flow Rate 98.0 F 105 H 18 127/93 H 100 Oxy Mask 10 01/11/25 04:00 01/11/25 06:00 01/11/25 06:00 01/11/25 04:00 01/11/25 06:00 01/11/25 04:00 01/11/25 06:00 Narrative Exam General: Elderly female, No acute distress, alert HEENT: NCAT, No JVD noted. Mucosa moist. Pupils are equal and reactive to light bilaterally Cardiovascular: Normal S1 and S2. Regular rate and rhythm. Respiratory: Lungs are clear to auscultation bilaterally. No wheezing or crackles heard. On oxymask Abdomen: Soft, nontender, not distended, normal bowel sounds. Skin: Warm to touch, dry, no rashes noted Musculoskeletal: No gross injuries. Able to move all 4 extremities. No pitting edema Neuro: Alert and oriented x0 but recognizes family at bedside. Strength 5/5 in all 4 extremities. Able to follow commands, non sensical speech. Gait tested. Patient able to take few steps with support. Psych: Normal affect and mood Objective Labs 01/13/25 05:39 01/12/25 05:23 Labs: Laboratory Results - last 24 hr 01/11/25 01/11/25 04:40 09:30 WBC 2.8 L RBC 5.11 Hgb 14.4 Hct 43.8 MCV 86 MCH 28.2 MCHC 32.9 RDW Std Deviation 40.6 Plt Count 243 Neut % (Auto) 43 Lymph % (Auto) 33 [place] % (Auto) 21 H Eos % (Auto) 1 Baso % (Auto) 1 Neut # (Auto) 1.2 L Lymph # (Auto) 0.9 L [place] # (Auto) 0.6 Eos # (Auto) 0.0 Baso # (Auto) 0.0 Immature Gran # (Auto) 0.01 H Absolute Nucleated RBC 0.00 Immature Gran % 0 Nucleated RBC % 0 Sodium 141 Potassium 3.6 Chloride 103 Carbon Dioxide 21.0 Anion Gap 17 H BUN 18 Creatinine 0.5 L Estim Creat Clear Calc 70.3 eGFR > 60 BUN/Creatinine Ratio 36 H Glucose 107 H Calculated Osmolality 283 Calcium 9.0 Corrected Calcium 9.0 Phosphorus 3.3 Magnesium 2.2 Total Bilirubin 0.3 AST 17 ALT 18 Alkaline Phosphatase 98 Total Protein 6.5 Albumin 4.6 Globulin 1.9 L Albumin/Globulin Ratio 2.4 H Beta-Hydroxybutyrate/Acetoacetate 1.6 H Monoscreen Negative ABG Interpretation ABG results: 01/09/25 01/09/25 13:56 15:08 ABG pH 7.41 ABG pCO2 35 ABG pO2 70 L ABG HCO3 22 ABG O2 Saturation 95 ABG Base Excess -2 VBG pH 7.36 VBG pCO2 37 VBG pO2 64 H VBG Base Excess -4 L Quality Measures Quality Measures stroke Suspected type of Stroke: Non Acute Last known well (date): 01/08/25 Last known well (time): 09:00 Tenecteplase given: Reason(s) Tenecteplase not given: Outside the time window not given Rehab services: PT evaluation ordered and Speech Language Pathology eval ordered VTE Prophylaxis: pharmaceutical Antithrombotic by day 2:: not indicated (describe) Statin ordered: n/a Anticoagulation ordered for A-fib or flutter (current or hx): not indicated Advance care planning discussed with:: child Assessment & Plan Assessment Current Active Medications: Generic Name Dose Route Start Last Admin Trade Name Freq PRN Reason Stop Dose Admin Acetaminophen 650 mg 01/08/25 17:09 01/10/25 13:43 Acetaminophen 325 Mg Tablet PO 02/07/25 17:08 650 mg Q6H PRN Administration Fever >101.5 Atorvastatin Calcium 10 mg 01/10/25 21:00 01/10/25 20:37 Atorvastatin Calcium 10 Mg Tablet PO 02/09/25 20:59 10 mg HS DELMY Administration Docusate Sodium 100 mg 01/09/25 09:00 01/11/25 08:29 Docusate Sod 100 Mg Capsule PO 02/08/25 08:59 Not Given QDAY DELMY Protocol Heparin Sodium (Porcine) 5,000 unit 01/08/25 21:00 01/11/25 08:36 Heparin Sod Inj 5000 Unit/Ml Vial SC 01/22/25 20:59 5,000 unit Q12HR DELMY Administration Ceftriaxone Sodium/Dextrose 1 gm in 50 mls @ 100 mls/hr 01/09/25 11:43 01/11/25 08:35 Rocephin/D5w 1gm Iv Premix IV 01/16/25 11:42 100 mls/hr QDAY DELMY Administration Lactated Ringer's 1,000 mls @ 75 mls/hr 01/11/25 10:09 01/11/25 11:14 Lactated Ringers IV 01/11/25 23:28 75 mls/hr .[id number] ONE Administration Labetalol HCl 10 mg 01/09/25 08:50 Labetalol Inj 5 Mg/Ml Vial 20 Ml IVP 02/08/25 08:49 Q4HR PRN SBP > 180 Ondansetron HCl 4 mg 01/08/25 17:09 Ondansetron Inj 2 Mg/Ml Inj 2 Ml IVP 02/07/25 17:08 Q6H PRN NAUSEA OR VOMITING Protocol Pantoprazole Sodium 40 mg 01/08/25 17:15 01/11/25 08:35 Pantoprazole Inj 40 Mg Vial IVP 02/07/25 17:14 40 mg QDAY DELMY Administration Plan Patient is a 79 yo female PMHx of HTN, abdominal pain, and headache with previous knee arthroplasty surgery presents to emergency department for altered mental status, LNW 9:30AM 01/08. Admitted for stroke workup. # Altered mental status secondary to Acute Metabolic Encephalopathy # Stroke ruled-out # CO Poisoning DDx: viral meningitis vs SLE vs metabolic acidosis secondary to mesenteric ischemia TSH 2.69; B12 462, Carboxyhemoglobin 2.2 01/10 - CTM clinically - WBC normal so low likelihood of infectious etiology - ordered lactate - Pending thiamine level - Urine Cx pending, UA was normal in ED - U tox negative - Salicylate and acetaminophen levels negative - Pending BCx x2 - On high-oxygen 10L - contacted poison control - nuero rec LP however family denies procedure # CVA ruled-out # TIA ruled-out NIH Score: 5 CTA Brain & Carotids: 30 to 50% stenosis right internal carotid artery. 70% stenosis left internal carotid artery. No cerebral large vessel arterial occlusions or thrombus MRI negative for any acute ischemia or hemorrhage Given ASA 81mg in ED - mIVF LR 75 mL/hr dc - consulted neuro appreciate recs, agree with stroke r/o - [employer] ATTENDANT recommends Dyspagia 2 diet - Draw End Hand following - PT notified IM Team about consistently tachy 130s. IM Team explained if unsymptomatic then patient should tolerate gait training - nurse bedside swallow eval, patient passed - NC q4hrs - neuro rec to dc statin - continue ASA 81 #Leukopenia WBC 3.5 - ordered influ A/B - family refused COVID - ordered mono screen # Abdominal Pain # Sigmoid Colitis on CT WBC 5.3 - mild pain 1-3 APAP 650mg q6, consider adding moderate pain reg - CT Abd/pel completed shows nonspecific colitis involving rectosigmoid colon. - consider ABX Tx if symptoms do not improve - consider GI - started ceftriaxone 1g IV daily (01/09- xx) #Constipation On bowel reg - KUB shows air and stool throughout small and large bowel - given lactulose 20g x1 # Metabolic Acidosis Bicarb on BMP, 19.5 (10.21) - CTM with BMP AM daily - consider other differentials that may cause metabolic acidoses # Primary HTN - hold lisinopril per stroke protocol Checklist Admit: Med Tele Diet: NPO VTE PPX: Heparin 5000U BID PUD PPX: protonix 40mg IV daily Bowel Reg: Doc-Senna DELMY CODE STATUS: FULL CODE Case was discussed with Attending Dr. Walter, and Senior Resident Dr. Gaby Mendoza DO PGY-1 Attending Provider Attestation/Addendum I have discussed and was present for the essential components of the history, physical examination, diagnosis, and treatment plan with the resident. I agree with the patient's care as documented by the resident and amended herein by me. Eirck Walter DO. Although this document has been carefully reviewed, there may still be some phonetic and other typographical errors. These errors are purely grammatical due to imperfections in the software program and should not be construed in any way to compromise the substance of the patient's medical care during this visit.
[2025-01-11 16:42] LABS: Influenza A Ag Negative; Influenza B Ag Negative
--- NOTE | 2025-01-11 18:34 | XR_ITS ---
EXAMINATION: Right shoulder single view TECHNIQUE: AP internal rotation right shoulder single view Date and time: January 11, 2025, 1905 hours INDICATIONS: Right shoulder pain today. FINDINGS: Severe osteopenia No shoulder fracture or dislocation. Prominent right shoulder calcific tendinitis Moderate osteoarthritis acromioclavicular joint IMPRESSION: Prominent right shoulder calcific tendinitis
[2025-01-11] MEDS: ATORVASTATIN CALCIUM 10 MG TABLET PO (20:34)
[2025-01-11] MEDS: POLYETHYLENE GLYCOL 17 GM PACKET PO (20:34)
[2025-01-11] MEDS: ACETAMINOPHEN 325 MG TABLET 650 MG PO (20:34)
--- NOTE | 2025-01-11 20:58 | PD.RESPRO ---
Documentation for date of: 01/11/25 Subjective Subjective Interval history: Patient examined at bedside. Vitals stable, labs show downtrending WBC to 2.8. Mentation improved from yesterday. Able to answer simple questions and state her name. Family wishes that patient remain on oxygen therapy. Primary care team pursuing additional viral workup in the setting of leukopenia. Cocci, mono, flu results are pending. Family denied testing for COVID. Continue to monitor clinical status and work with PT. Exam Vital Signs Temp Pulse Resp BP Pulse Ox O2 Del Method O2 Flow Rate 98.7 F 82 14 121/68 100 Nasal Cannula 3 01/11/25 16:00 01/11/25 16:05 01/11/25 16:05 01/11/25 16:00 01/11/25 16:05 01/11/25 16:00 01/11/25 16:00 Narrative Exam General: Elderly female, No acute distress, alert HEENT: NCAT, No JVD noted. Mucosa moist. Pupils are equal and reactive to light bilaterally Cardiovascular: Normal S1 and S2. Regular rate and rhythm. Respiratory: Lungs are clear to auscultation bilaterally. No wheezing or crackles heard. On oxymask Abdomen: Soft, nontender, not distended, normal bowel sounds. Skin: Warm to touch, dry, no rashes noted Musculoskeletal: No gross injuries. Able to move all 4 extremities. No pitting edema Neuro: Alert and oriented x1 but recognizes family at bedside. Strength 5/5 in all 4 extremities. Able to follow commands, slow speech. Gait not tested today. Psych: Normal affect and mood Objective Labs 01/13/25 05:39 01/12/25 05:23 Labs: Laboratory Results - last 24 hr 01/11/25 01/11/25 01/11/25 04:40 09:30 12:25 WBC 2.8 L RBC 5.11 Hgb 14.4 Hct 43.8 MCV 86 MCH 28.2 MCHC 32.9 RDW Std Deviation 40.6 Plt Count 243 Neut % (Auto) 43 Lymph % (Auto) 33 [place] % (Auto) 21 H Eos % (Auto) 1 Baso % (Auto) 1 Neut # (Auto) 1.2 L Lymph # (Auto) 0.9 L [place] # (Auto) 0.6 Eos # (Auto) 0.0 Baso # (Auto) 0.0 Immature Gran # (Auto) 0.01 H Absolute Nucleated RBC 0.00 Immature Gran % 0 Nucleated RBC % 0 Sodium 141 Potassium 3.6 Chloride 103 Carbon Dioxide 21.0 Anion Gap 17 H BUN 18 Creatinine 0.5 L Estim Creat Clear Calc 70.3 eGFR > 60 BUN/Creatinine Ratio 36 H Glucose 107 H Calculated Osmolality 283 Calcium 9.0 Corrected Calcium 9.0 Phosphorus 3.3 Magnesium 2.2 Total Bilirubin 0.3 AST 17 ALT 18 Alkaline Phosphatase 98 Total Protein 6.5 Albumin 4.6 Globulin 1.9 L Albumin/Globulin Ratio 2.4 H Beta-Hydroxybutyrate/Acetoacetate 1.6 H Monoscreen Negative Influenza A (Rapid) Negative Influenza B (Rapid) Negative ABG Interpretation ABG results: 01/09/25 01/09/25 13:56 15:08 ABG pH 7.41 ABG pCO2 35 ABG pO2 70 L ABG HCO3 22 ABG O2 Saturation 95 ABG Base Excess -2 VBG pH 7.36 VBG pCO2 37 VBG pO2 64 H VBG Base Excess -4 L Quality Measures Quality Measures stroke Suspected type of Stroke: Non Acute Last known well (date): 01/08/25 Last known well (time): 09:00 Tenecteplase given: Reason(s) Tenecteplase not given: Outside the time window not given Rehab services: PT evaluation ordered and Speech Language Pathology eval ordered VTE Prophylaxis: pharmaceutical Antithrombotic by day 2:: not indicated (describe) Statin ordered: >75 y/o moderate or high intensity dose Anticoagulation ordered for A-fib or flutter (current or hx): not indicated Advance care planning discussed with:: child Assessment & Plan Assessment Current Active Medications: Generic Name Dose Route Start Last Admin Trade Name Freq PRN Reason Stop Dose Admin Acetaminophen 650 mg 01/11/25 20:24 01/11/25 20:34 Acetaminophen 325 Mg Tablet PO 02/07/25 17:08 650 mg Q6H PRN Administration Fever >100.4 Atorvastatin Calcium 10 mg 01/10/25 21:00 01/11/25 20:34 Atorvastatin Calcium 10 Mg Tablet PO 02/09/25 20:59 10 mg HS DELMY Administration Docusate Sodium 100 mg 01/09/25 09:00 01/11/25 08:29 Docusate Sod 100 Mg Capsule PO 02/08/25 08:59 Not Given QDAY DELMY Protocol Heparin Sodium (Porcine) 5,000 unit 01/08/25 21:00 01/11/25 20:35 Heparin Sod Inj 5000 Unit/Ml Vial SC 01/22/25 20:59 5,000 unit Q12HR DELMY Administration Ceftriaxone Sodium/Dextrose 1 gm in 50 mls @ 100 mls/hr 01/09/25 11:43 01/11/25 08:35 Rocephin/D5w 1gm Iv Premix IV 01/16/25 11:42 100 mls/hr QDAY DELMY Administration Lactated Ringer's 1,000 mls @ 75 mls/hr 01/11/25 10:09 01/11/25 11:14 Lactated Ringers IV 01/11/25 23:28 75 mls/hr .[id number] ONE Administration Labetalol HCl 10 mg 01/09/25 08:50 Labetalol Inj 5 Mg/Ml Vial 20 Ml IVP 02/08/25 08:49 Q4HR PRN SBP > 180 Ondansetron HCl 4 mg 01/08/25 17:09 Ondansetron Inj 2 Mg/Ml Inj 2 Ml IVP 02/07/25 17:08 Q6H PRN NAUSEA OR VOMITING Protocol Pantoprazole Sodium 40 mg 01/08/25 17:15 01/11/25 08:35 Pantoprazole Inj 40 Mg Vial IVP 02/07/25 17:14 40 mg QDAY DELMY Administration Polyethylene Glycol 17 gm 01/11/25 18:45 01/11/25 20:34 Polyethylene Glycol 17 Gm Packet PO 02/10/25 18:44 17 gm QDAY DELMY Administration Plan Patient is a 79 yo female PMHx of HTN presents to emergency department for altered mental status, LNW 9:30AM 01/08. Neurology consulted for stroke workup. #Acute encephalopathy-improving Likely due to CO poisoning. Concern for delayed neurological sequelae due to exposure. She presented with confusion and aphasia. After the exposure to gas, she experienced headache, nausea, vomiting. There was a lucid interval where she remained asymptomatic. Then presented to ED with confusion. She has been having slow decline in memory and requiring more help at home. In ED stroke alert called. NIHSS score 6. BP was 148/90, EKG NSR. Was given 81mg aspirin. CT head negative, CTA head/neck showed 30-50% stenosis right carotid and 70% stenosis in left carotid, negative for LVO. A1c 5.5, TAG 86, cholesterol 132, LDL 78, HDL 78. TSH 2.69; B12 462. UTox negative MRI negative for any ischemia or hemorrhage. CarboxyHb 2.2--primary care team contacted poison control. EEG was normal, no seizure activity. - Pending thiamine level - Urine Cx pending, UA was normal in ED -neuro check q4hr -dc atorvastatin -continue oxygen therapy -PT # Abdominal Pain # Sigmoid Colitis on CT #Constipation # Metabolic Acidosis # Primary HTN Primary care team to manage above conditions and ongoing care needs. The patient's management plan was discussed with my attending physician Dr. Stearns. Jeannette Neri, PGY-2 Attending Provider Attestation/Addendum I personally have seen and examined the patient at the bedside and I agreed with resident's findings, assessment and plan of care. Presented with AMS and aphasia, improving. MRI negative for any ischemia or hemorrhage. CarboxyHb 2.2--primary care team contacted poison control. EEG was normal, no seizure activity. Leukopenia of acute onset: workup pending
[2025-01-12] VITALS (7 sets, daily range): BP systolic 115–142; BP diastolic 67–93; PULSE 77–102; RESP 12–18; TEMP 36.7–37; O2SAT 97–99; BMI 23.6; BMI 11.0; BMI 12.0
[2025-01-12 06:24] LABS: Basophils # (Auto) 0.0 Thou/mm3 (0.0-0.2); Basophils % (Auto) 1 % (0-2.5); Eosinophils # (Auto) 0.1 Thou/mm3 (0.0-0.5); Eosinophils % (Auto) 3 % (0-10); Hematocrit 36.7 % (36.0-46.0); Hemoglobin 12.3 g/dL (12.0-16.0); Immature Granulocytes Auto 0.01 Thou/mm3 (0.00-0.00); Lymphocytes # (Auto) 0.9 Thou/mm3 (1.0-4.8); Lymphocytes % (Auto) 51 % (10-50); Mean Corpuscular HGB Conc 33.5 g/dl (31.0-37.0); Mean Corpuscular Hemoglobin 29.2 pg (25.0-35.0); Mean Corpuscular Volume 87 fL (80-100); Monocytes # (Auto) 0.4 Thou/mm3 (0.0-0.8); Monocytes % (Auto) 21 % (0-12); Neutrophils # (Auto) 0.4 Thou/mm3 (1.8-7.7); Neutrophils % (Auto) 24 % (37-80); Nucleated Red Blood Cell # 0.00 Thou/mm3 (0.00-0.00); Nucleated Red Blood Cell % 0 /100 WBC (0); Platelet Count 205 Thou/mm3 (140-440); RDW Standard Deviation 41.7 fL (36.4-46.3); Red Blood Count 4.21 Miln/mm3 (4.00-5.20); White Blood Count 1.8 Thou/mm3 (3.6-11.0)
[2025-01-12 06:42] LABS: Alanine Aminotransferase 25 U/L (10-49); Albumin, Serum 3.9 gm/dL (3.4-4.8); Albumin/Globulin Ratio 1.9 (1.2-2.2); Alkaline Phosphatase 83 U/L (46-116); Anion Gap 11 (7-16); Aspartate Amino Transferase 33 U/L (0-34); BUN/Creatinine Ratio 18 Ratio (12-20); Bilirubin,Total 0.3 mg/dL (0.3-1.2); Blood Urea Nitrogen 9 mg/dL (9-23); Calcium 9.0 mg/dL (8.3-10.6); Calcium (Corrected) 9.1 mg/dL (8.5-10.1); Carbon Dioxide 24.9 mMol/L (20.0-31.0); Chloride 105 mMol/L (98-107); Creatinine (Component) 0.5 mg/dL (0.6-1.3); Estimated Creatinine Clearance 68.7 mL/min (>60); Globulin 2.1 gm/dL (2.3-3.5); Glucose 103 mg/dL (74-106); Magnesium 2.1 mg/dL (1.6-2.6); Osmolality,Calculated 279 (275-295); Phosphorous 2.9 mg/dL (2.4-5.1); Potassium 3.4 mMol/L (3.4-5.1); Sodium 141 mMol/L (136-145); Total Protein 6.0 gm/dL (5.7-8.2); eGFR > 60 See Note
[2025-01-12] MEDS: POLYETHYLENE GLYCOL 17 GM PACKET PO (08:32)
[2025-01-12] MEDS: HEPARIN SOD INJ 5000 UNIT/ML VIAL SC ×2 (08:33→21:18)
[2025-01-12] MEDS: DOCUSATE SOD 100 MG CAPSULE PO (08:34)
[2025-01-12] MEDS: cefTRIAXone/D5w 1gm IV premix 1 GM/50 ML BAG IV (08:35)
[2025-01-12 10:25] LABS: Path Review Blood Smear Sent to Pathologist
[2025-01-12] MEDS: FOLIC ACID 1 MG TABLET PO (11:38)
[2025-01-12] MEDS: MULTIVITAMINS TABLET 1 TAB PO (11:38)
[2025-01-12 11:57] LABS: Cocci Serology, IgM Negative (Negative)
[2025-01-12 12:44] LABS: HIV (1&2) Antibody Rapid Non-Reactive
[2025-01-12 13:01] LABS: Folate 11.55 ng/mL (>5.38); Hepatitis A Antibody IgM Non Reactive (Non React); Hepatitis B Core Antibody IgM Non Reactive (Non React); Hepatitis B Surface Antigen Non Reactive (Non React); Hepatitis C Antibody Non Reactive (Non React)
--- NOTE | 2025-01-12 13:25 | PD.RESPRO ---
Documentation for date of: 01/12/25 No overnight events. Patient examined at bedside. Acute encephalopathy, continues to wax and wane, but improving, now Alert and Orientated X 3. Concern for UTI and started on ceftriaxone, less likely UTI as patient denied urinary symptoms. Concern for Leukopenia given decreasing WBC count, discontinued Ceftriaxone as this may be the cause. Consult hematology, will consult on patient. Patient completed PT. Senior Resident Attestation: I have discussed the case with supervising physician and sports management internship physician involved in the care of patient. I personally saw and examined patient and discussed the assessment and plan with the entire medical team, including attending. I agree with assessment and plan as documented below. - The patient's plan was discussed with attending Dr. Jose Angel Amador MD PGY2 Internal Medicine Subjective Subjective Interval history: NAEON, vitals signs stable, patient shows marked inprovement in mentation, AOx4, joking and speaking freely with myself and staff. R shoulder XR showed tendinitis, ordered a lidocaine patch. Exam Vital Signs Temp Pulse Resp BP Pulse Ox O2 Del Method O2 Flow Rate 98.4 F 93 18 130/90 H 99 Nasal Cannula 2 01/12/25 12:00 01/12/25 12:00 01/12/25 12:00 01/12/25 12:00 01/12/25 12:00 01/12/25 12:00 01/12/25 12:00 Narrative Exam General: No acute distress, well nourished Eye: PERRL, EOMI, normal conjunctiva, no scleral icterus HENT: Normocephalic, atraumatic, normal hearing, pink and moist mucous membranes, no oral lesions in mouth, throat shows no erythema Neck: Supple, non-tender, no JVD, no lymphadenopathy Lungs: Clear to auscultation bilaterally, non-labored respirations, symmetric chest rise, no use of accessory muscles Heart: Normal S1 and S2, no S3 or S4 appreciated. Normal rate and regular rhythm, no murmurs, rubs gallops, or edema. Peripheral pulses intact bilaterally, capillary refill brisk distally Abdomen: Soft, non-tender, non-distended, normal bowel sounds. No guarding or rebound tenderness. Musculoskeletal: Normal range of motion and strength. Right shoulder slight decreased flexion. Skin: Skin is warm, dry, no rashes or lesions. Neurologic: Alert, awake and oriented x3. CN II-XII grossly intact. No focal neuro deficits. No signs of meningeal irritation noted. Psychiatric: Cooperative, appropriate mood and affect Objective Labs 01/13/25 05:39 01/12/25 05:23 Labs: Laboratory Results - last 24 hr 01/11/25 01/11/25 01/12/25 09:30 12:25 05:23 WBC 1.8 L RBC 4.21 Hgb 12.3 D Hct 36.7 MCV 87 MCH 29.2 MCHC 33.5 RDW Std Deviation 41.7 Plt Count 205 D Neut % (Auto) 24 L Lymph % (Auto) 51 H [place] % (Auto) 21 H Eos % (Auto) 3 Baso % (Auto) 1 Neut # (Auto) 0.4 L Lymph # (Auto) 0.9 L [place] # (Auto) 0.4 Eos # (Auto) 0.1 Baso # (Auto) 0.0 Immature Gran # (Auto) 0.01 H Absolute Nucleated RBC 0.00 Immature Gran % 1 H Nucleated RBC % 0 Smear Path Review Sent to Pathologist Sodium 141 Potassium 3.4 Chloride 105 Carbon Dioxide 24.9 Anion Gap 11 BUN 9 Creatinine 0.5 L Estim Creat Clear Calc 68.7 eGFR > 60 BUN/Creatinine Ratio 18 Glucose 103 Calculated Osmolality 279 Calcium 9.0 Corrected Calcium 9.1 Phosphorus 2.9 Magnesium 2.1 Total Bilirubin 0.3 AST 33 ALT 25 Alkaline Phosphatase 83 Total Protein 6.0 Albumin 3.9 D Globulin 2.1 L Albumin/Globulin Ratio 1.9 Folate 11.55 Coccidioides IgM Ab Negative Hepatitis A IgM Ab Non Reactive Hep Bs Antigen Non Reactive Hep B Core IgM Ab Non Reactive Hepatitis C Antibody Non Reactive HIV 1&2 Antibody Rapid Non-Reactive Influenza A (Rapid) Negative Influenza B (Rapid) Negative ABG Interpretation ABG results: 01/09/25 01/09/25 13:56 15:08 ABG pH 7.41 ABG pCO2 35 ABG pO2 70 L ABG HCO3 22 ABG O2 Saturation 95 ABG Base Excess -2 VBG pH 7.36 VBG pCO2 37 VBG pO2 64 H VBG Base Excess -4 L Quality Measures Quality Measures stroke Suspected type of Stroke: Non Acute Last known well (date): 01/08/25 Last known well (time): 09:00 Tenecteplase given: Reason(s) Tenecteplase not given: Outside the time window not given Rehab services: PT evaluation ordered VTE Prophylaxis: pharmaceutical Antithrombotic by day 2:: ordered Statin ordered: n/a Anticoagulation ordered for A-fib or flutter (current or hx): not indicated and refused Advance care planning discussed with:: patient Assessment & Plan Assessment Current Active Medications: Generic Name Dose Route Start Last Admin Trade Name Freq PRN Reason Stop Dose Admin Acetaminophen 650 mg 01/11/25 20:24 01/11/25 20:34 Acetaminophen 325 Mg Tablet PO 02/07/25 17:08 650 mg Q6H PRN Administration Fever >100.4 Atorvastatin Calcium 10 mg 01/10/25 21:00 01/11/25 20:34 Atorvastatin Calcium 10 Mg Tablet PO 02/09/25 20:59 10 mg HS DELMY Administration Docusate Sodium 100 mg 01/09/25 09:00 01/12/25 08:34 Docusate Sod 100 Mg Capsule PO 02/08/25 08:59 100 mg QDAY DELMY Administration Protocol Folic Acid 1 mg 01/12/25 09:00 01/12/25 11:38 Folic Acid 1 Mg Tablet PO 02/11/25 08:59 1 mg QDAY DELMY Administration Heparin Sodium (Porcine) 5,000 unit 01/08/25 21:00 01/12/25 08:33 Heparin Sod Inj 5000 Unit/Ml Vial SC 01/22/25 20:59 5,000 unit Q12HR DELMY Administration Labetalol HCl 10 mg 01/09/25 08:50 Labetalol Inj 5 Mg/Ml Vial 20 Ml IVP 02/08/25 08:49 Q4HR PRN SBP > 180 Lidocaine 1 patch 01/12/25 10:40 Lidocaine 5% 1 Patch TOP 02/11/25 10:39 UD PRN PAIN Multivitamins 1 tab 01/12/25 09:00 01/12/25 11:38 Multivitamins Tablet PO 02/11/25 08:59 1 tab QDAY DELMY Administration Ondansetron HCl 4 mg 01/08/25 17:09 Ondansetron Inj 2 Mg/Ml Inj 2 Ml IVP 02/07/25 17:08 Q6H PRN NAUSEA OR VOMITING Protocol Polyethylene Glycol 17 gm 01/11/25 18:45 01/12/25 08:32 Polyethylene Glycol 17 Gm Packet PO 02/10/25 18:44 17 gm QDAY DELMY Administration Plan Patient is a 79 yo female PMHx of HTN, abdominal pain, and headache with previous knee arthroplasty surgery presents to emergency department for altered mental status, LNW 9:30AM 01/08. Admitted for stroke workup. # Acute Metabolic Encephalopathy, likley secondary to CO poisoning, improving # CO Poisoning #generalized weakness # Stroke, ruled-out DDx: viral meningitis vs SLE vs metabolic acidosis secondary to mesenteric ischemia TSH 2.69; B12 462, Carboxyhemoglobin 2.2 01/10 Patient showing improvement in mentation - CTM clinically - Pending thiamine level - Urine Cx pending, UA was normal in ED - U tox negative - Salicylate and acetaminophen levels negative - BCx x2 NG x48hrs - On 3L NC # Leukopenia WBC 3.5 --> 2.8 --> 1.8 - family refused COVID - mono screen and flu negative - stopped rocephin, 2% chance of aplastic anemia reaction - consulted Dr. Maciel, will see later tonight # CVA ruled-out # Stroke ruled -out # TIA ruled-out NIH Score: 5 CTA Brain & Carotids: 30 to 50% stenosis right internal carotid artery. 70% stenosis left internal carotid artery. No cerebral large vessel arterial occlusions or thrombus MRI negative for any acute ischemia or hemorrhage Given ASA 81mg in ED - CTM - disconitnued stroke protocol, lab holiday, only keeping CBC for tomorrow # Abdominal Pain # Sigmoid Colitis on CT WBC 5.3 - mild pain 1-3 APAP 650mg q6, consider adding moderate pain reg - CT Abd/pel completed shows nonspecific colitis involving rectosigmoid colon. - consider ABX Tx if symptoms do not improve - consider GI - ceftriaxone 1g IV daily (01/09- 01/12) - stopped rocephin due to possible drug reaction # Primary HTN controlled Patient is out of permissive HTN protocol and stroke has been ruled out. Patient's home medication of Lisinopril 2.5 mg once daily on hold as patient's blood pressure has been within normal limits. Plan -Labetalol PRN, SBP >180 -Continue to hold Lisinopril #Constipation resolved # Metabolic Acidosis resolved Checklist Admit: Med Tele Diet: NPO VTE PPX: Heparin 5000U BID PUD PPX: protonix 40mg IV daily Bowel Reg: Doc-Julio BROCK Aquino: d/c zandra 01/12 CODE STATUS: FULL CODE Case was discussed with Attending Dr. Walter, and Senior Resident Dr. Marjorie Mednoza DO PGY-1 Attending Provider Attestation/Addendum I have discussed and was present for the essential components of the history, physical examination, diagnosis, and treatment plan with the resident. I agree with the patient's care as documented by the resident and amended herein by me. Erick Walter DO. Although this document has been carefully reviewed, there may still be some phonetic and other typographical errors. These errors are purely grammatical due to imperfections in the software program and should not be construed in any way to compromise the substance of the patient's medical care during this visit. Patient seen and evaluated this AM. Patient's cognition much improved today, patient working with physical therapy, able to ambulate. Significantly improved overall. Her leukopenia is slightly worse today, neutrophils 0.4 lymphocytes 0.9, I believe this is due to medication, probably the ceftriaxone considering her cell counts began to drop after starting this medication. As such we will consult hematology/oncology for further recommendations, Dr. Abbott to see what he has to say. We have since discontinued ceftriaxone which was placed for UTI which she does not appear to have per culture results. Blood cultures also negative.
--- NOTE | 2025-01-12 15:14 | PC.SS ---
Rounding Note: Patient is back to baseline. Plan is to discharge patient tomorrow. Patient to return home with home health.
[2025-01-12] MEDS: ACETAMINOPHEN 325 MG TABLET 650 MG PO (16:55)
[2025-01-12] MEDS: ATORVASTATIN CALCIUM 10 MG TABLET PO (21:18)
--- NOTE | 2025-01-12 21:31 | PD.RESPRO ---
Documentation for date of: 01/12/25 Subjective Subjective Interval history: Patient examined at bedside. Vitals stable, labs show downtrending WBC to 1.8. Primary team has consulted hematoloy as viral workup returned negative. Mentation improved from yesterday. Able to answer simple questions and state her name. AOx3. Continue to monitor clinical status and work with PT. Exam Vital Signs Temp Pulse Resp BP Pulse Ox O2 Del Method O2 Flow Rate 98.1 F 77 14 115/67 99 Nasal Cannula 2 01/12/25 20:00 01/12/25 20:00 01/12/25 20:00 01/12/25 20:00 01/12/25 20:00 01/12/25 20:00 01/12/25 20:00 Narrative Exam General: Elderly female, No acute distress, alert HEENT: NCAT, No JVD noted. Mucosa moist. Pupils are equal and reactive to light bilaterally Cardiovascular: Normal S1 and S2. Regular rate and rhythm. Respiratory: Lungs are clear to auscultation bilaterally. No wheezing or crackles heard. On oxymask Abdomen: Soft, nontender, not distended, normal bowel sounds. Skin: Warm to touch, dry, no rashes noted Musculoskeletal: No gross injuries. Able to move all 4 extremities. No pitting edema Neuro: Alert and oriented x3. Strength 5/5 in all 4 extremities. Able to follow commands, slow speech. Gait not tested today. Psych: Normal affect and mood Objective Labs 01/13/25 05:39 01/12/25 05:23 Labs: Laboratory Results - last 24 hr 01/11/25 01/12/25 09:30 05:23 WBC 1.8 L RBC 4.21 Hgb 12.3 D Hct 36.7 MCV 87 MCH 29.2 MCHC 33.5 RDW Std Deviation 41.7 Plt Count 205 D Neut % (Auto) 24 L Lymph % (Auto) 51 H [place] % (Auto) 21 H Eos % (Auto) 3 Baso % (Auto) 1 Neut # (Auto) 0.4 L Lymph # (Auto) 0.9 L [place] # (Auto) 0.4 Eos # (Auto) 0.1 Baso # (Auto) 0.0 Immature Gran # (Auto) 0.01 H Absolute Nucleated RBC 0.00 Immature Gran % 1 H Nucleated RBC % 0 Smear Path Review Sent to Pathologist Sodium 141 Potassium 3.4 Chloride 105 Carbon Dioxide 24.9 Anion Gap 11 BUN 9 Creatinine 0.5 L Estim Creat Clear Calc 68.7 eGFR > 60 BUN/Creatinine Ratio 18 Glucose 103 Calculated Osmolality 279 Calcium 9.0 Corrected Calcium 9.1 Phosphorus 2.9 Magnesium 2.1 Total Bilirubin 0.3 AST 33 ALT 25 Alkaline Phosphatase 83 Total Protein 6.0 Albumin 3.9 D Globulin 2.1 L Albumin/Globulin Ratio 1.9 Folate 11.55 Coccidioides IgM Ab Negative Hepatitis A IgM Ab Non Reactive Hep Bs Antigen Non Reactive Hep B Core IgM Ab Non Reactive Hepatitis C Antibody Non Reactive HIV 1&2 Antibody Rapid Non-Reactive ABG Interpretation ABG results: 01/09/25 01/09/25 13:56 15:08 ABG pH 7.41 ABG pCO2 35 ABG pO2 70 L ABG HCO3 22 ABG O2 Saturation 95 ABG Base Excess -2 VBG pH 7.36 VBG pCO2 37 VBG pO2 64 H VBG Base Excess -4 L Quality Measures Quality Measures stroke Suspected type of Stroke: Non Acute Last known well (date): 01/08/25 Last known well (time): 09:00 Tenecteplase given: Reason(s) Tenecteplase not given: Outside the time window not given Rehab services: PT evaluation ordered and Speech Language Pathology eval ordered VTE Prophylaxis: pharmaceutical Antithrombotic by day 2:: not indicated (describe) Statin ordered: not ordered Anticoagulation ordered for A-fib or flutter (current or hx): not indicated Advance care planning discussed with:: child Assessment & Plan Assessment Current Active Medications: Generic Name Dose Route Start Last Admin Trade Name Himaq PRN Reason Stop Dose Admin Acetaminophen 650 mg 01/11/25 20:24 01/12/25 16:55 Acetaminophen 325 Mg Tablet PO 02/07/25 17:08 650 mg Q6H PRN Administration Fever >100.4 Atorvastatin Calcium 10 mg 01/10/25 21:00 01/12/25 21:18 Atorvastatin Calcium 10 Mg Tablet PO 02/09/25 20:59 10 mg HS DELMY Administration Docusate Sodium 100 mg 01/09/25 09:00 01/12/25 08:34 Docusate Sod 100 Mg Capsule PO 02/08/25 08:59 100 mg QDAY DELMY Administration Protocol Folic Acid 1 mg 01/12/25 09:00 01/12/25 11:38 Folic Acid 1 Mg Tablet PO 02/11/25 08:59 1 mg QDAY DELMY Administration Heparin Sodium (Porcine) 5,000 unit 01/08/25 21:00 01/12/25 21:18 Heparin Sod Inj 5000 Unit/Ml Vial SC 01/22/25 20:59 5,000 unit Q12HR DELMY Administration Labetalol HCl 10 mg 01/09/25 08:50 Labetalol Inj 5 Mg/Ml Vial 20 Ml IVP 02/08/25 08:49 Q4HR PRN SBP > 180 Lidocaine 1 patch 01/12/25 10:40 Lidocaine 5% 1 Patch TOP 02/11/25 10:39 UD PRN PAIN Multivitamins 1 tab 01/12/25 09:00 01/12/25 11:38 Multivitamins Tablet PO 02/11/25 08:59 1 tab QDAY DELMY Administration Ondansetron HCl 4 mg 01/08/25 17:09 Ondansetron Inj 2 Mg/Ml Inj 2 Ml IVP 02/07/25 17:08 Q6H PRN NAUSEA OR VOMITING Protocol Polyethylene Glycol 17 gm 01/11/25 18:45 01/12/25 08:32 Polyethylene Glycol 17 Gm Packet PO 02/10/25 18:44 17 gm QDAY DELMY Administration Plan Patient is a 79 yo female PMHx of HTN presents to emergency department for altered mental status, LNW 9:30AM 01/08. Neurology consulted for stroke workup. #Acute encephalopathy-improving Likely due to CO poisoning. Concern for delayed neurological sequelae due to exposure. She presented with confusion and aphasia. After the exposure to gas, she experienced headache, nausea, vomiting. There was a lucid interval where she remained asymptomatic. Then presented to ED with confusion. She has been having slow decline in memory and requiring more help at home. In ED stroke alert called. NIHSS score 6. BP was 148/90, EKG NSR. Was given 81mg aspirin. CT head negative, CTA head/neck showed 30-50% stenosis right carotid and 70% stenosis in left carotid, negative for LVO. A1c 5.5, TAG 86, cholesterol 132, LDL 78, HDL 78. TSH 2.69; B12 462. UTox negative MRI negative for any ischemia or hemorrhage. CarboxyHb 2.2--primary care team contacted poison control. EEG was normal, no seizure activity. Urine culture no growth. - Pending thiamine level -neuro check q4hr -dc atorvastatin -continue oxygen therapy -PT #Leukopenia # Abdominal Pain # Sigmoid Colitis on CT #Constipation # Metabolic Acidosis # Primary HTN Primary care team to manage above conditions and ongoing care needs. The patient's management plan was discussed with my attending physician Dr. Stearns. Jeannette Neri, PGY-2 Attending Provider Attestation/Addendum I did review the records independently and I agreed with resident's findings, assessment and plan of care. Acute encephalopathy-improving, suspected CO poisoning. Concern for delayed neurological sequelae due to exposure. She presented with confusion and aphasia. After the exposure to gas, she experienced headache, nausea, vomiting. There was a lucid interval where she remained asymptomatic. She has been having slow decline in memory and requiring more help at home. W/U is negative for now. Leukopenia: w/u will need to be done as an outpatient, IMN, HIV, Hep, Influenza: negative.
[2025-01-13] VITALS: BP 118/72; PULSE 78; PULSE 82; RESP 13; TEMP 36.8; O2SAT 100
[2025-01-13 04:00] VITALS: BP 115/68; PULSE 86; PULSE 88; RESP 16; TEMP 36.8; O2SAT 91
[2025-01-13 06:00] VITALS: BMI 22.9
[2025-01-13 06:18] LABS: Basophils # (Auto) 0.0 Thou/mm3 (0.0-0.2); Basophils % (Auto) 1 % (0-2.5); Eosinophils # (Auto) 0.1 Thou/mm3 (0.0-0.5); Eosinophils % (Auto) 5 % (0-10); Hematocrit 36.7 % (36.0-46.0); Hemoglobin 11.6 g/dL (12.0-16.0); Immature Granulocytes Auto 0.00 Thou/mm3 (0.00-0.00); Lymphocytes # (Auto) 0.9 Thou/mm3 (1.0-4.8); Lymphocytes % (Auto) 54 % (10-50); Mean Corpuscular HGB Conc 31.6 g/dl (31.0-37.0); Mean Corpuscular Hemoglobin 28.4 pg (25.0-35.0); Mean Corpuscular Volume 90 fL (80-100); Monocytes # (Auto) 0.3 Thou/mm3 (0.0-0.8); Monocytes % (Auto) 19 % (0-12); Neutrophils # (Auto) 0.4 Thou/mm3 (1.8-7.7); Neutrophils % (Auto) 21 % (37-80); Nucleated Red Blood Cell # 0.00 Thou/mm3 (0.00-0.00); Nucleated Red Blood Cell % 0 /100 WBC (0); Platelet Count 224 Thou/mm3 (140-440); RDW Standard Deviation 43.8 fL (36.4-46.3); Red Blood Count 4.08 Miln/mm3 (4.00-5.20); White Blood Count 1.7 Thou/mm3 (3.6-11.0)
[2025-01-13 08:00] VITALS: BP 116/75; PULSE 85; PULSE 93; RESP 15; TEMP 36.8; O2SAT 94
[2025-01-13] MEDS: FOLIC ACID 1 MG TABLET PO (09:19)
[2025-01-13] MEDS: DOCUSATE SOD 100 MG CAPSULE PO (09:19)
[2025-01-13] MEDS: MULTIVITAMINS TABLET 1 TAB PO (09:20)
[2025-01-13] MEDS: HEPARIN SOD INJ 5000 UNIT/ML VIAL SC (09:38)
[2025-01-13] MEDS: FILGRASTIM INJ (ZARXIO) 300 MCG/0.5 ML SYRINGE SC (11:59)
[2025-01-13 12:00] VITALS: PULSE 92
--- NOTE | 2025-01-13 13:26 | PD.RESDS ---
Planned Discharge Date 01/13/25 DS: Providers Provider Date of admission: 01/08/25 17:09 Primary care physician: Physician No Primary/Family Admitting Provider: Jonathan Espinal MD Attending Provider on Admission: Osiel Walter DO Consults: 01/08/25 14:49 Consult to Neurology / Tele-Neurology Routine Comment: Consulting Provider: [facility] 01/08/25 17:20 Referral Speech Therapy Stat Comment: Stroke 01/08/25 17:21 Referral Physical Therapy Routine Comment: Physician Instructions: 01/09/25 07:32 Consult to Neurology / Tele-Neurology Stat Comment: Stroke w/u Consulting Provider: Galo Stearns 01/11/25 09:52 Referral Registered Dietitian Stat Comment: bolus feeding via NG tube 01/12/25 11:13 Consult to Hematology Routine Comment: Leukopenia Consulting Provider: Kailash Abbott Attending Provider on DC: Sheryl Mendoza MD Discharging Provider: Sheryl Mendoza MD DS: Diagnosis Problem List Completed Was Problem List Reviewed/Reconciled?: Yes Hospital Course Hospital Course Hospital course: Patient is a 79 yo female PMHx of HTN HLD, with previous knee arthroplasty surgery presents to emergency department for altered mental status, LNW 9:30AM 01/08. Admitted for stroke workup and subsequently found to have CO poisoning. Intially admitted directly into the ICU and subsequently down graded and discharged from floors on 01/13/2025 ED Course: Per medics, family on scene reported she had woken up at 09:00 AM today at her usual state of health. States some time after waking, she began to complain of feeling dizzy and nausea. 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 The patient was not speaking appropriately and appeared confused. Per medics, on scene the patient had a G-FAST of 1 for the aphasia. Otherwise able to follow commands and strength equal in all extremities. In the ED, patient appears to be confused and unable to provide any additional history. T 99.7, HR 114, RR 20, BP 148/90, Pulse Ox 92% on RA. Given 81mg ASA. CTA carotids and brain show 30 to 50% stenosis right carotid bifurcation origin right internal carotid artery. 70% stenosis left carotid bifurcation origin left internal carotid artery. No cerebral large vessel arterial occlusions or thrombus. Per Neuro Dr. Marcial: Mrs. Santos is a 79 year old female with an acute confusional state vs aphasia. Her NIHSS is 6. CT Head negative for bleed. Not a candidate for thrombolysis given LKW >4.5 hours. CTA without evidence of LVO. DDx includes stroke, metabolic encephalopathy, other focal cerebral disease. At this time I would recommend work up for metabolic encephalopathy per primary and MRI brain for the evaluation of ischemia. Admitted to our service for stroke workup vs acute metabolic encephalopathy Hospital Course: Patient arrived with profound confusion and aphasia after a lucid interval following carbon monoxide exposure at home; she reportedly left the gas stove on with the flame off for 3-4 hours a week prior, with subsequent headache and vomiting. Family provided additional history regarding exposure and symptom onset. CTA and MRI were negative for ischemia, hemorrhage, or seizure activity. No acute cerebrovascular event was identified. 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 Laboratory Findings:?initial WBC 3.5 (further declined to 1.8), leukopenia likely secondary to ceftriaxone. Metabolic acidosis (CO2 19.9) resolved with supportive management. Imaging:?CT brain (unremarkable), CT abdomen/pelvis (nonspecific colitis in rectosigmoid colon), R shoulder x-ray (tendinitis). Lumbar Puncture/Neuroinfectious Workup:?Family declined LP, but viral panels (including Coccidioides, Hepatitis, and HIV) were negative. Supportive oxygen therapy continued; neurology and poison control consulted, LP deferred, thiamine level pending. Ceftriaxone initiated empirically for UTI/colitis, discontinued after concern for drug-induced leukopenia, cultures negative. Patient?s mentation markedly improved on final hospital day; alert, oriented, able to answer questions, interact cooperatively and appropriately with staff. Shoulder pain addressed with lidocaine patch. Constipation resolved. Ambulating with assistance. Dr. Abbott consulted for leukopenia. Leukopenia persists, outpatient hematology follow-up recommended. Continue supportive management at home, maintain BP monitoring, no ABX regimen, and maintain hydration and nutrition. Discharge Instructions: -STOP Lisinopril until you follow up with your primary care provider, your blood pressure has been normal -Please take multivitamins -Please follow up with Dr. Abbott, oncologist, within 1 to 2 weeks of discharge. -Please continue take all other medication as prescribed -Please follow up with your primary care provider within one week of discharge -If your symptoms worsen,please seek immediate medical attention and return to your nearest emergency room -If you do not have a primary care provider, [facility] [address], [place] [address], -Follow up with Dr. Stearns in two weeks in office [phone] # Acute Metabolic Encephalopathy, likely secondary to CO poisoning, resolved # CO Poisoning resolved #generalized weakness resolved # Stroke, ruled-out # Leukopenia likely secondary to ceftriaxone improving # CVA ruled-out # Stroke ruled -out # TIA ruled-out # Abdominal Pain resolved # Sigmoid Colitis on CT # Primary HTN controlled #Constipation resolved # Metabolic Acidosis resolved Case was discussed with Attending Dr. Walter, and Senior Resident Dr. Marjorie Mendoza DO PGY-1 - The patient's plan was discussed with attending Dr. Jose Angel Amador MD PGY2 Internal Medicine Status at Discharge Functional status at discharge: independent ambulation Overall status at discharge: patient is back to baseline Time Spent with Patient Time attestation: Total time spent providing and/or coordinating discharge services: Time spent: Greater than 30 minutes Home Health Home Health Referral Orders: 01/13/25 08:23 Home Health Referral Routine Reason For Exam: PT Home-Bound The patient must either because of illness or injury, need the aid of supportive devices such as crutches, canes, wheelchairs, and walkers; the use of special transportation; or the assistance of another person in order to leave their place of residence; OR have a condition such that leaving his or her home is medically contraindicated. In addition, the patient also meets the following criteria: patient is normally unable to leave the home and leaving home requires considerable taxing effort. Addendum to Home Health Certification Practitioner's Certification: I certify that the patient has been under my care in the hospital and the care of attending physician (see below). We had a [id number] encounter on (see date below). My clinical findings indicate that the patient is home bound per the above criteria and the Home Health Services noted in these orders are medically necessary. The primary reason for the [id number] encounter is related to the fact that the patient requires home health services. Date Certifying Htiw-qw-Raic Physician Encounter: 01/08/25 Physician's Name who will Assume Oversight for Services: Dany([facility] [place] [facility] [place]: No PT to Evaluate: Yes PT to evaluate and provide a treatmnet plan to increase patient's mobility and strength. Wound Care: No IV Therapy: No Discontinue PICC Line Once Treatment Complete: No RN Safety Evaluation: Yes RN to evaluate and create a plan of care that will produce positive outcomes. Palliative Treatment: No Palliative treatment and evaluate the need for hospice. Home Health Aide - Personal Care: No Home Health Aide to assist with any ADL's. Exam Vital Signs Temp Pulse Resp BP Pulse Ox O2 Del Method O2 Flow Rate 98.2 F 85 15 116/75 94 L Room Air 2 01/13/25 08:00 01/13/25 08:00 01/13/25 08:00 01/13/25 08:00 01/13/25 08:00 01/13/25 08:00 01/13/25 04:00 Narrative Exam General: No acute distress, well nourished Eye: PERRL, EOMI, normal conjunctiva, no scleral icterus HENT: Normocephalic, atraumatic, normal hearing, pink and moist mucous membranes, no oral lesions in mouth, throat shows no erythema Neck: Supple, non-tender, no JVD, no lymphadenopathy Lungs: Clear to auscultation bilaterally, non-labored respirations, symmetric chest rise, no use of accessory muscles Heart: Normal S1 and S2, no S3 or S4 appreciated. Normal rate and regular rhythm, no murmurs, rubs gallops, or edema. Peripheral pulses intact bilaterally, capillary refill brisk distally Abdomen: Soft, non-tender, non-distended, normal bowel sounds. No guarding or rebound tenderness. Musculoskeletal: Normal range of motion and strength. Skin: Skin is warm, dry, no rashes or lesions. Neurologic: Alert, awake and oriented x3. CN II-XII grossly intact. No focal neuro deficits. No signs of meningeal irritation noted. Psychiatric: Cooperative, appropriate mood and affect Discharge Plan Plan Patient Disposition: HOME (Self Care) Patient condition on transfer: Stable Care Plan Goals: Instructions: -STOP Lisinopril until you follow up with your primary care provider, your blood pressure has been normal -Please take multivitamins -Please follow up with Dr. Abbott, oncologist, within 1 to 2 weeks of discharge. -Please continue take all other medication as prescribed -Please follow up with your primary care provider within one week of discharge -If your symptoms worsen,please seek immediate medical attention and return to your nearest emergency room -If you do not have a primary care provider, you may follow up at the [facility] at [address] [place] [address] [address], [place] [address], -Follow up with Dr. Stearns in two weeks in office [phone] Prescriptions/Referrals Prescriptions/Med Rec: New atorvastatin 10 mg Tablet 10 mg PO HS 90 Days Qty: 90 0RF folic acid 1 mg Tablet 1 mg PO QDAY 30 Days Qty: 30 0RF multivitamin with folic acid [Tab-A-Maria E] 400 mcg Tablet 1 tab PO QDAY 30 Days Qty: 30 0RF Held lisinopril 2.5 mg Tablet 2.5 mg PO QDAY Hold Instructions: Resume on 01/19/25. Please hold Lisinopril until you follow up with your primary care provider, as you blood pressure has been normal in the hospital. Referrals: Kailash Abbott MD [Physician, Oncology] Dany Celestin([facility])MD [MD, Family Practice] No Primary/Family,Physician [Primary Care Provider] Patient/Caregiver Discharge Instructions Education Materials: Carbon Monoxide Poisoning Print Language: Australian Stand Alone Forms: Ashley Award Info., Patient Portal Info Letter Discharge Order Discharge Orders: Discharge (Routine); Ordered 01/13/25 Ordered By: Mary Amador Quality Discharge Quality Measures VTE prophylaxis Attestestation Attestation I have discussed and was present for the essential components of the discharge history, physical examination, diagnosis, and discharge treatment plan with the resident. I agree with the patient's discharge care as documented by the resident and amended herein by me. Erick Walter, . The patient understood all discharge instructions, all questions were answered satisfactorily. The patient was instructed to return to the Emergency Department is symptoms worsened or persisted. Patient significantly improved, mentation back to baseline at time of discharge, the patient was ambulating with physical therapy, home health for PT ordered. We suspected that the patient may be experiencing delayed neuropsychiatric syndrome from carbon monoxide poisoning which happened approximately a week prior to admission hence there was not much we can do about that except supportive care. We did rule out all infectious causes however initially did start the patient on ceftriaxone for suspicion of UTI, we suspect this may have been what caused the patient's leukopenia which did plateau at time of discharge after discontinuing the medication. We did have hematology see the patient who recommended follow-up in approximately 15 days which was explained to the patient and her family. The patient was stable, afebrile, tolerating p.o. intake and ambulatory at time of discharge home. Although this document has been carefully reviewed, there may still be some phonetic and other typographical errors. These errors are purely grammatical due to imperfections in the software program and should not be construed in any way to compromise the substance of the patient's medical care during this visit. Time Spent on discharge: 39 minutes
--- NOTE | 2025-01-13 13:47 | VVPN_ITS ---
Telemedicine visit statement This visit was conducted with the use of interactive audio and video telecommunications system that permits real time communication between the patient and the provider. Patient's verbal consent for virtual visit was obtained on 01/13/25 at 1347. Documentation for date of: 01/13/25 Subjective Subjective Interval history: Patient is in telemetry. No new symptoms reported. Her mental status is improved, back to baseline. No motor weakness or sensory deficit noted. Virtual exam Vital Signs Temp Pulse Resp BP Pulse Ox O2 Del Method O2 Flow Rate 98.2 F 85 15 116/75 94 L Room Air 2 01/13/25 08:00 01/13/25 08:00 01/13/25 08:00 01/13/25 08:00 01/13/25 08:00 01/13/25 08:00 01/13/25 04:00 Objective Labs 01/13/25 05:39 01/12/25 05:23 Labs: Laboratory Results - last 24 hr 01/13/25 05:39 WBC 1.7 L RBC 4.08 Hgb 11.6 L Hct 36.7 MCV 90 MCH 28.4 MCHC 31.6 RDW Std Deviation 43.8 Plt Count 224 Neut % (Auto) 21 L Lymph % (Auto) [address] [facility] % (Auto) 19 H Eos % (Auto) 5 Baso % (Auto) 1 Neut # (Auto) 0.4 L Lymph # (Auto) 0.[address] [facility] # (Auto) 0.3 Eos # (Auto) 0.1 Baso # (Auto) 0.0 Immature Gran # (Auto) 0.00 Absolute Nucleated RBC 0.00 Immature Gran % 0 Nucleated RBC % 0 ABG Interpretation ABG results: 01/09/25 01/09/25 13:56 15:08 ABG pH 7.41 ABG pCO2 35 ABG pO2 70 L ABG HCO3 22 ABG O2 Saturation 95 ABG Base Excess -2 VBG pH 7.36 VBG pCO2 37 VBG pO2 64 H VBG Base Excess -4 L Assessment & Plan Assessment Patient is a 79 yo female PMHx of HTN presents to emergency department for altered mental status, LNW 9:30AM 01/08. Neurology consulted for stroke workup. #Acute encephalopathy-resolved, back to baseline Likely due to CO poisoning. Concern for delayed neurological sequelae due to exposure. She presented with confusion and aphasia. After the exposure to gas, she experienced headache, nausea, vomiting. There was a lucid interval where she remained asymptomatic. Then presented to ED with confusion. She has been having slow decline in memory and requiring more help at home. In ED stroke alert called. NIHSS score 6. BP was 148/90, EKG NSR. Was given 81mg aspirin. CT head negative, CTA head/neck showed 30-50% stenosis right carotid and 70% stenosis in left carotid, negative for LVO. A1c 5.5, TAG 86, cholesterol 132, LDL 78, HDL 78. TSH 2.69; B12 462. UTox negative MRI negative for any ischemia or hemorrhage. CarboxyHb 2.2--primary care team contacted poison control. EEG was normal, no seizure activity. Continue with oxygen only as needed #Leukopenia : Preliminary workup is negative for viral infection, follow-up with the hematology oncology as an outpatient # Primary HTN: Resume antihypertensives Patient is stable for discharge and I will see her back in 2 weeks.
[2025-01-13 13:48] LABS: Cocci Serology, IgG Negative (Negative)
[2025-01-13 15:15] VITALS: BP 109/69; PULSE 89; RESP 20; TEMP 36.7; O2SAT 95
--- NOTE | 2025-01-15 07:37 | PC.CC ---
HH ref sent out, waiting for response
--- NOTE | 2025-01-15 08:57 | ESCONSULT_ITS ---
RE: CAITLYN SANTOS : 1945 DATE OF CONSULTATION: 01/12/2025 REFERRING PHYSICIAN: Reji. REASON FOR CONSULTATION: Leukopenia. HISTORY OF PRESENT ILLNESS: Mrs. Santos is a 79-year-old female with past medical history of altered mental status. The patient was not feeling well after a birthday democrat prior to the admission, the patient was complaining of dizziness. Her son was saying that her mother was talking to him but was not making any sense sounded confused and even though her children do not speak Greenlandic she was talking in Greenlandic to them. She has associated symptom of dizziness that lasted couple of days. No nausea or vomiting. The patient daughter mentioned that her mother was around her son with pneumonia and she also mentioned to me that she had a carbon dioxide poisoning she left the stove on. PAST MEDICAL HISTORY: Hypertension. PAST SURGICAL HISTORY: Joint replacement but not very clear most probably knee or knees I do not have any information. FAMILY HISTORY: There is no history of cancer or blood disorder in the family. SOCIAL HISTORY: Irrelevant. PHYSICAL EXAMINATION: General: On physical examination she is alert. She is afebrile. Vital Signs: Vital signs stable. HEENT: Pupils are reactive to light and accommodation. Sclerae nonicteric. Neck is supple. There is no JVD or palpable mass. Lungs: Good air entry bilaterally. They are clear to auscultation and percussion. Heart: Regular. Abdomen: Soft. Bowel sounds are present. There is no obvious organomegaly. Extremities: 3+ pedal pulses. There is no cyanosis or edema. BLOCK CAPTAIN: The patient is able to move her extremities and follow simple commands. LABORATORY DATA: Her blood work WBC count 1.8, hemoglobin is 12.3, hematocrit 36.7 with normal indices and platelet count is 205,000 but her neutrophil count is 24 which is kind of low and her lymphocyte count is 51 which is high but her monocyte counts are 21%. One has to rule out any kind of infection because of the monocytosis. Her blood work on 01/09/2025 was 5.5 and then they start to drop down and today they are 1.8. But on 10/10 her neutrophil count was 48% and lymphocyte count was 31% but monocyte count was 18% which is gradually increased to 21% and lymphocyte increased to 51% and neutrophil count has dropped down to 24% though there is no obvious known infection at the moment but one has to rule out and if not then hopefully this will revert back to the normal and one can monitor closely. There were no immature cells were seen on the peripheral blood. The patient and family asked simple questions, they were answered to their satisfaction. I will follow this patient with you and write order according to the clinical situation. In case if patient is discharged she can see me in my office in 10-15 days. I thank you Reji for letting me participate in the care of this interesting patient. If you have any questions please feel free to contact me. DT: 17:20:19 TT: 17:44:00 Ref: [id number] - TID: [id number]
[2025-01-16 07:23] LABS: Vitamin B1 (Thiamine)* <6 nmol/L (8-30)
--- NOTE | 2025-01-16 11:40 | PC.CM ---
Patient has been accepted by [facility]. Start of care date set for 01/19.
== END 2025-01-13 15:18 | disposition home or self-care (01) | DRG 917 ==
LOC: SERX 17:19 → SERHOLD 17:36 → S2SX 22:11 → S2NX 01-11 13:35
PROVIDERS: Admitting Provider Student in an Organized Health Care Education/Training Program; Emergency Provider Emergency Medicine; Visit Provider Student in an Organized Health Care Education/Training Program
DX: T58.91XA Toxic effect of carbon monoxide from unspecified source, accidental (unintentional), initial encounter (principal); G93.41 Metabolic encephalopathy; E87.20 Acidosis, unspecified; R47.01 Aphasia; R29.810 Facial weakness; I10 Essential (primary) hypertension; H26.9 Unspecified cataract; K52.9 Noninfective gastroenteritis and colitis, unspecified; E78.5 Hyperlipidemia, unspecified; I65.23 Occlusion and stenosis of bilateral carotid arteries; F03.90 Unspecified dementia, unspecified severity, without behavioral disturbance, psychotic disturbance, mood disturbance, and anxiety; K59.00 Constipation, unspecified; D70.2 Other drug-induced agranulocytosis; Z96.659 Presence of unspecified artificial knee joint; Z88.5 Allergy status to narcotic agent; Z88.8 Allergy status to other drugs, medicaments and biological substances
CPT/HCPCS: 36415; 36600; 70450; 70496; 70498; 70544; 71045; 73020; 74018; 74176; 80053; 80061; 80069; 80074; 80307; 80329; 81001; 82010; 82375; 82607; 82746; 82803; 83036; 83605; 83735; 83880; 84100; 84425; 84443; 84484; 85025; 85610; 85730; 86308; 86331; 86635; 86703; 87040; 87086; 87502; 92507; 92523; 92526; 92610; 93005; 93225; 93306; 95816; 96361; 96372; 96374; 96375; 97162; 99284; A4649; J0696; J1644; J2060; J2470; J3490; J7030; J7050; J7120; Q5101; Q9967; A9270; G0480